=== PATIENT | female | born 1940 | race Caucasian/White ===

== ENCOUNTER → 2018-05-29 14:31 | Outpatient (CLI) | payer MEDICARE, OTHER, SELFPAY ==
--- NOTE | 2018-05-29 14:34 | BI_ITS ---
MAMMOGRAPHY - BILATERAL SCREENING REASON FOR EXAM: Female, 77 years old. Routine annual screening examination. PERTINENT HISTORY: Sister with breast cancer. Remote left excisional breast biopsy for benign neoplasm. TECHNIQUE: Digital bilateral breast saul (3D mammographic acquisition) in the CC and MLO projections. 2-D mediolateral oblique (MLO) and craniocaudad (CC) views of both breasts were obtained. CAD: Full Field Digital Mammography with Computer Added Detection was performed. COMPARISON: Comparison is made with prior study dated May 20, 2014 and October 20, 2011. FINDINGS: Breast Composition: The breasts are heterogeneously dense, which may obscure small masses. There are no dominant masses or suspicious calcifications. No other significant abnormalities are identified. There has been no significant change since the prior study. BI/SCREENING MAMM (CAD), BILAT IMPRESSION: Stable bilateral screening mammogram. Yearly follow-up mammogram recommended. (A) ASSESSMENT CATEGORY: BIRADS Category 1: Negative. A letter regarding these results will be sent to the patient by the facility within 30 days. Approximately 10% of breast cancers are not detected by mammography. A normal mammogram should not delay biopsy of a clinically suspicious abnormality. [id number] Electronically Signed: Nash Garcia MD at 8:42 EDT Tel [phone], Service support ,
== END ==
PROVIDERS: Family Provider Family Medicine; PCP Family Medicine; Visit Provider Family Medicine
DX: Z00.00 Encounter for general adult medical examination without abnormal findings (principal); Z12.31 Encounter for screening mammogram for malignant neoplasm of breast
CPT/HCPCS: 77063; 77067

== ENCOUNTER → 2019-02-01 17:52 | Outpatient (CLI) | payer MEDICARE, OTHER, SELFPAY | PROVIDERS: Family Provider Family Medicine; PCP Family Medicine; Referring Provider Family Medicine; Visit Provider Family Medicine | DX: R30.0 Dysuria (principal) | CPT/HCPCS: 87086; 87088; 87186 ==

== ENCOUNTER → 2019-04-12 | Outpatient (CLI) | payer MEDICARE, OTHER, SELFPAY ==
[2019-04-03 14:22] VITALS: BMI 29.9
[2019-04-12 12:17] LABS: AST(SGOT) 19 U/L (15-37); Alanine Aminotransfer ALT/SGPT 25 U/L (13-56); Albumin, Serum 3.7 g/dL (3.2-5.0); Alkaline Phosphatase 87 U/L (45-117); Bilirubin, Direct 0.09 mg/dL (0.00-0.30); Globulin 3.1 g/dL (2.2-4.2); Protein, Total 6.8 g/dL (6.4-8.2)
[2019-04-12 12:54] LABS: Anion Gap 6 (5-15); BUN 18 mg/dL (7-18); BUN/Creat Ratio 14.1 RATIO (10-20); Calcium,Total 8.6 mg/dL (8.5-10.1); Chloride 109 mmol/L (98-107); Cholesterol 149 mg/dL (200); Creatinine, Serum 1.28 mg/dL (0.55-1.02); EST Glomerular Filtration Rate 43 mL/min (>60); Est Glom Filt Rate - Afr Amer 52 mL/min (>60); Glucose 98 mg/dL (74-106); High Density Lipoprotein 50 mg/dL; Potassium 4.1 mmol/L (3.5-5.1); Sodium Level 142 mmol/L (136-145); Triglycerides 114 mg/dL; Very Low Density Lipoprotein 23 mg/dL (5-40)
== END | disposition home or self-care (01) ==
PROVIDERS: Family Provider Family Medicine; PCP Family Medicine; Referring Provider Internal Medicine Cardiovascular Disease; Visit Provider Internal Medicine Cardiovascular Disease
DX: I10 Essential (primary) hypertension (principal); E78.00 Pure hypercholesterolemia, unspecified
CPT/HCPCS: 36415; 80048; 80061; 80076

== ENCOUNTER → 2019-07-23 | Outpatient (CLI) | payer MEDICARE, OTHER, SELFPAY ==
[2019-04-03 14:22] VITALS: BMI 29.9
== END | disposition home or self-care (01) ==
PROVIDERS: Family Provider Family Medicine; PCP Family Medicine; Referring Provider Nurse Practitioner Adult Health; Visit Provider Nurse Practitioner Adult Health
DX: R30.0 Dysuria (principal)
CPT/HCPCS: 87077; 87086; 87088; 87186

== ENCOUNTER → 2019-12-05 11:00 | Outpatient (CLI) | payer MEDICARE, OTHER, SELFPAY ==
[2019-10-31 10:29] VITALS: BMI 29.8
[2019-12-05 12:03] LABS: AST(SGOT) 18 U/L (15-37); Alanine Aminotransfer ALT/SGPT 29 U/L (13-56); Albumin, Serum 3.5 g/dL (3.2-5.0); Alkaline Phosphatase 84 U/L (45-117); Bilirubin, Direct 0.13 mg/dL (0.00-0.30); Cholesterol 191 mg/dL (200); Globulin 3.4 g/dL (2.2-4.2); High Density Lipoprotein 45 mg/dL; Protein, Total 6.9 g/dL (6.4-8.2); Triglycerides 131 mg/dL; Very Low Density Lipoprotein 26 mg/dL (5-40)
== END ==
PROVIDERS: PCP Family Medicine; Referring Provider Internal Medicine Cardiovascular Disease; Visit Provider Internal Medicine Cardiovascular Disease
DX: E78.00 Pure hypercholesterolemia, unspecified (principal)
CPT/HCPCS: 36415; 80061; 80076

== ENCOUNTER → 2019-12-31 15:11 | Outpatient (CLI) | payer MEDICARE, OTHER, SELFPAY ==
[2019-10-31 10:29] VITALS: BMI 29.8
[2019-12-31 18:10] LABS: Absolute Lymphocyte Count 2.44 X10^3/uL (0.83-4.51); Absolute Neutrophil Count 4.3 X10^3/uL (2.0-7.7); Basophil# 0.07 X10^3/uL; Basophil% 0.9 % (0-1); Eosinophil# 0.14 X10^3/uL; Eosinophils% 1.8 % (0-5); Hematocrit 39.3 % (37-47); Hemoglobin 12.8 g/dL (12.0-15.0); Lymphocyte # 2.44 X10^3/ul (4.0); Lymphocyte % 31.5 % (19-41); Mean Corp Hgb Conc 32.6 g/dL (32-36); Mean Corpuscular Hgb 29.6 pg (27.0-32.0); Mean Corpuscular Volume 90.8 fL (81-99); Monocyte% 10.3 % (0-10); NRBC Flagged by Analyzer 0 % (0-5); Neutrophil # 4.26 X10^3/uL (2.7-7.7); Platelet Count 179 K/mm3 (150-450); RBC Distribution Width CV 12.6 % (11.6-14.6); RBC Distribution Width SD 41.8 fl (35.1-43.9); Red Blood Count 4.33 M/mm3 (4.2-5.4); White Blood Count 7.8 K/mm3 (4.4-11.0)
[2019-12-31 18:54] LABS: ALB/GLOB Ratio 1.2 RATIO (0.9-2.4); AST(SGOT) 24 U/L (15-37); Alanine Aminotransfer ALT/SGPT 36 U/L (13-56); Albumin, Serum 3.7 g/dL (3.2-5.0); Alkaline Phosphatase 75 U/L (45-117); Anion Gap 5 (5-15); BUN 20 mg/dL (7-18); BUN/Creat Ratio 16.7 RATIO (10-20); Chloride 108 mmol/L (98-107); EST Glomerular Filtration Rate 46 mL/min (>60); Est Glom Filt Rate - Afr Amer 56 mL/min (>60); Globulin 3.1 g/dL (2.2-4.2); Glucose 93 mg/dL (74-106); Potassium 4.1 mmol/L (3.5-5.1); Protein, Total 6.8 g/dL (6.4-8.2); Sodium Level 140 mmol/L (136-145); Thyroid Stim Hormone (TSH) 3.19 uIU/mL (0.358-3.74)
== END ==
PROVIDERS: PCP Family Medicine; Visit Provider Family Medicine
DX: F32.9 Major depressive disorder, single episode, unspecified (principal)
CPT/HCPCS: 36415; 80053; 84443; 85025

== ENCOUNTER → 2020-09-29 | Outpatient (CLI) | payer MEDICARE, OTHER, SELFPAY ==
[2020-05-01 14:39] VITALS: BMI 29.4
== END | disposition home or self-care (01) ==
LOC: LABSPEC 15:43
PROVIDERS: PCP Family Medicine; Referring Provider Family Medicine; Visit Provider Family Medicine
DX: U07.1 COVID-19 (principal); J06.9 Acute upper respiratory infection, unspecified
CPT/HCPCS: 87635; U0003

== ENCOUNTER 2020-10-04 18:06 | Emergency (ER) | payer MEDICARE, OTHER, SELFPAY ==
[2020-05-01 14:39] VITALS: BMI 29.4
[2020-10-04] VITALS (7 sets, daily range): BP systolic 144–183; BP diastolic 80–104; PULSE 70–87; RESP 14–19; TEMP 36.7–36.8; O2SAT 96–98; BMI 28.0
--- NOTE | 2020-10-04 08:30 | RAD_ITS ---
STUDY: X-RAY CHEST REASON FOR EXAM: Female, 79 years old. FEVER, NAUSEA, ACHING, CHILLS FOR SEVERAL DAYS. NO APPETITE, POSITIVE COVID TEST 09/29/20 -- HX OF HTN TECHNIQUE: Single frontal view of the chest. COMPARISON: 04/22/2012 FINDINGS: The lungs are clear and expanded. There is no demonstrated pleural abnormality. Normal size heart. Normal mediastinum and thomas. Normal visualized pulmonary arteries. Normal visualized aortic arch and descending thoracic aorta. Normal visualized thoracic spine. Normal visualized ribs, clavicles, and shoulders. There is no demonstrated abnormality of the visualized soft tissue structures of the upper abdomen. RAD/Chest 1 View (Portable) IMPRESSION: Normal x-ray examination of the chest. Electronically Signed: Kvng Castro MD at 18:42 EST Tel , Service support ,
--- NOTE | 2020-10-04 18:21 | ED.DCSUM_ITS ---
History of Present Illness Chief Complaint: Nausea/Vomiting Informant: Patient Onset: Days Context: Gradual Onset Narrative: Patient presents secondary to feeling ill. She complains of subjective fever, chills, nausea, body aches. She states she became ill on the seventh and tested positive for Covid on the 10th. She initially had cough and respiratory symptoms but those seem to be improved. - Past Medical History (1) Essential hypertension Status: Chronic (2) Pure hypercholesterolemia Status: Chronic Past Medical History - Allergies and Home Meds Allergies/Adverse Reactions: Allergies amlodipine Allergy (Severe, Verified 05/01/20 14:37) Mouth Sores diltiazem [From Cardizem] Allergy (Intermediate, Verified 05/01/20 14:37) Mouth Ulcers atorvastatin Adverse Reaction (Intermediate, Verified 05/01/20 14:37) Nausea losartan [From Cozaar] Adverse Reaction (Intermediate, Verified 05/01/20 14:37) cough nitrofurantoin [From Macrobid] Adverse Reaction (Intermediate, Verified 05/01/20 14:37) Nausea/Vomiting paroxetine [From Paxil] Adverse Reaction (Intermediate, Verified 05/01/20 14:37) Vomiting chlorthalidone Adverse Reaction (Mild, Verified 05/01/20 14:37) Nausea erythromycin base Adverse Reaction (Unknown, Verified 05/01/20 14:37) Unknown erythromycin Adverse Reaction (Severe, Uncoded 10/31/19 10:29) Unknown Primary Care Physician: Liz Riddle MD [Primary Care Provider] - Surgical History: noncontributory Lives: Spouse/ Significant Other Smoking Status: Never smoker Review of Systems General: Reports: Chills, Fever, Subjective Eyes: Denies: Visual changes - bilaterally ENT: Denies: Bilateral ear pain Cardiovascular: Denies: Chest pain Respiratory: Reports: Cough - Improving. Denies: Dyspnea Gastrointestinal: Reports: Nausea. Denies: Abdominal pain Genitourinary: Denies: Dysuria Musculoskeletal: Reports: Myalgias. Denies: Extremity Pain Skin: Denies: Rash Hematologic: Denies: Easy bruising, Easy bleeding Allergy: Denies: Uticaria Physical Exam Vital Signs/Narrative: Vital Signs Temp Pulse Resp BP Pulse Ox 10/04/20 18:09 98.3 F 87 16 145/89 H 98 10/04/20 18:07 98.3 F 84 16 145/89 H 98 Inital Vital Signs reviewed: Yes General: Well nourished, Well developed Head: Normocephalic ENT: Moist mucous membranes Neck: Supple Cardiovascular: Regular rate, Regular rhythm Respiratory: No distress, CTA bilaterally Abdomen: Soft, Nontender, Hypoactive bowel sounds Skin: Normal color Neurological: Alert, Oriented x3 Psychological: Normal affect Diagnostic/Tx/Re-eval Impressions Chest X-Ray 10/04/20 08:30 IMPRESSION: Normal x-ray examination of the chest. Electronically Signed: Kvng Castro MD at 18:42 EST Tel , Service support , 10/04/20 08:30 Chest 1 View (Portable) [RAD] Stat Laboratory Results 10/04/20 10/04/20 10/04/20 18:20 18:20 18:20 WBC 4.7 RBC 5.00 Hgb 14.9 Hct 43.8 MCV 87.6 MCH 29.8 MCHC 34.0 RDW Std Deviation 39.6 RDW Coeff of [place] 12.3 Plt Count 179 MPV 11.7 Immature Gran % (Auto) 0.400 Neut % (Auto) 46.4 L Lymph % (Auto) 37.0 Hendricks % (Auto) 14.7 H Eos % (Auto) 0.9 Baso % (Auto) 0.6 Absolute Neuts (auto) 2.2 Absolute Lymphs (auto) 1.73 Nucleated RBC % 0 Sodium 140 Potassium 3.7 Chloride 106 Carbon Dioxide 26.0 Anion Gap 8 BUN 19 H Creatinine 1.11 H Estim Creat Clear Calc 38.47 Est GFR (MDRD) Af Amer 61 Est GFR (MDRD) Non-Af 50 L BUN/Creatinine Ratio 17.1 Glucose 111 H Lactic Acid 1.1 Calcium 8.7 Urine Color Urine Clarity Urine pH Ur Specific [place] Urine Protein Urine Glucose (UA) Urine Ketones Urine Occult Blood Urine Nitrite Urine Bilirubin Urine Urobilinogen Ur Leukocyte Esterase Urine RBC Urine WBC Ur Squamous Epith Cells Ur Transition Epith Cell Urine Bacteria Urine Mucus 10/04/20 20:05 WBC RBC Hgb Hct MCV MCH MCHC RDW Std Deviation RDW Coeff of [place] Plt Count MPV Immature Gran % (Auto) Neut % (Auto) Lymph % (Auto) Hendricks % (Auto) Eos % (Auto) Baso % (Auto) Absolute Neuts (auto) Absolute Lymphs (auto) Nucleated RBC % Sodium Potassium Chloride Carbon Dioxide Anion Gap BUN Creatinine Estim Creat Clear Calc Est GFR (MDRD) Af Amer Est GFR (MDRD) Non-Af BUN/Creatinine Ratio Glucose Lactic Acid Calcium Urine Color Yellow Urine Clarity Cloudy Urine pH 6.0 Ur Specific [place] 1.010 Urine Protein Negative Urine Glucose (UA) Normal Urine Ketones 5 H Urine Occult Blood Negative Urine Nitrite Negative Urine Bilirubin Negative Urine Urobilinogen Normal Ur Leukocyte Esterase Negative Urine RBC 0 SEEN Urine WBC 0-5 SEEN Ur Squamous Epith Cells 5-10 SEEN Ur Transition Epith Cell 0-5 SEEN Urine Bacteria 0 SEEN Urine Mucus 0 SEEN - Medical Decision Making Patient was given a 500 cc IV fluid bolus along with 4 mg of IV Zofran. On repeat evaluation patient stated that she did not feel she could urinate and was still nauseated. She was given p.o. Reglan and was able to provide a urine sample. Patient states she was able to get the water down okay but she does still feel nauseated. Test results are discussed with her. At this time she does feel comfortable with discharge to home. She will be given a prescription for Zofran that she can take regularly for the next couple days to see if this controls her nausea. ED Disposition - Plan for ED Patient: Disposition: Home or Assisted Living Diagnosis: COVID-19, Nausea Instructions: ED Nausea Vomiting Adult, ED Viral Syndrome Prescriptions: Ondansetron [Zofran Odt] 4 mg PO Q8H PRN PRN #10 tab PRN Reason: Nausea Transmission Status: Pending to [facility] Referrals: Liz Riddle MD [Primary Care Provider] - 1 Week if not improving
[2020-10-04] MEDS: Ondansetron 4 MG/2 ML Vial IV (18:26)
[2020-10-04 18:38] LABS: Absolute Lymphocyte Count 1.73 X10^3/uL (0.83-4.51); Absolute Neutrophil Count 2.2 X10^3/uL (2.0-7.7); Basophil# 0.03 X10^3/uL; Basophil% 0.6 % (0-1); Eosinophil# 0.04 X10^3/uL; Eosinophils% 0.9 % (0-5); Hematocrit 43.8 % (37-47); Hemoglobin 14.9 g/dL (12.0-15.0); Lymphocyte # 1.73 X10^3/ul (4.0); Mean Corpuscular Hgb 29.8 pg (27.0-32.0); Mean Corpuscular Volume 87.6 fL (81-99); Mean Platelet Vol. 11.7 fl (6.2-12.0); Monocyte# 0.69 X10^3/uL; Monocyte% 14.7 % (0-10); NRBC Flagged by Analyzer 0 % (0-5); Neutrophil # 2.17 X10^3/uL (2.7-7.7); Neutrophil % 46.4 % (47-70); Platelet Count 179 K/mm3 (150-450); RBC Distribution Width CV 12.3 % (11.6-14.6); RBC Distribution Width SD 39.6 fl (35.1-43.9); White Blood Count 4.7 K/mm3 (4.4-11.0)
[2020-10-04 18:52] LABS: Anion Gap 8 (5-15); BUN 19 mg/dL (7-18); BUN/Creat Ratio 17.1 RATIO (10-20); Calcium,Total 8.7 mg/dL (8.5-10.1); Chloride 106 mmol/L (98-107); Creatinine, Serum 1.11 mg/dL (0.55-1.02); EST Glomerular Filtration Rate 50 mL/min (>60); Est Glom Filt Rate - Afr Amer 61 mL/min (>60); Estimated Creatinine Clearance 38.47 ml/min; Glucose 111 mg/dL (74-106); Potassium 3.7 mmol/L (3.5-5.1); Sodium Level 140 mmol/L (136-145)
[2020-10-04 19:02] LABS: Lactic Acid 1.1 mmol/L (0.4-1.9)
[2020-10-04] MEDS: Metoclopramide 10 MG Tablet PO (20:04)
[2020-10-04 20:11] LABS: Bacteria 0 SEEN /hpf (None Seen); Mucous, Urine 0 SEEN /hpf (<or=2+); Red Blood Cells-Urine 0 SEEN /hpf (0-5)
[2020-10-04 20:13] LABS: Color, Urine Yellow (Yellow); Glucose, Dipstick Normal (Normal); Ketone-Dipstick 5 mg/dl (Negative); Leukocyte Esterase-Dipstick Negative /ul (Negative); Nitrite-Dipstick Negative (Negative); Occult Blood-Urine Negative /ul (Negative); Protein-Dipstick Negative (Negative); Urine Bilirubin Dipstick Negative (Negative); Urine Clarity Cloudy (Clear); Urine Urobilinogen Normal (Normal)
[2020-10-04 20:34] LABS: Squamous Epithelial Cells - UA 5-10 SEEN /hpf (5-10); Transitional Epithelial - Ur 0-5 SEEN /hpf (0-5); White Blood Cells 0-5 SEEN /hpf (0-5)
== END 2020-10-04 21:09 | disposition home or self-care (01) ==
PROVIDERS: Emergency Provider Emergency Medicine; PCP Family Medicine
DX: U07.1 COVID-19 (principal); R11.0 Nausea; I10 Essential (primary) hypertension; E78.00 Pure hypercholesterolemia, unspecified; Z79.82 Long term (current) use of aspirin; Z79.899 Other long term (current) drug therapy
CPT/HCPCS: 36415; 71045; 80048; 81001; 83605; 85025; 87040; 96361; 96374; 99284; J7040; A4216; J2405

== ENCOUNTER 2020-10-05 11:27 | Emergency (ER) | payer MEDICARE, OTHER, SELFPAY ==
[2020-10-04 18:07] VITALS: BMI 28.0
[2020-10-05 11:28] VITALS: BP 66/49; PULSE 63; RESP 17; TEMP 36.4; O2SAT 97; BMI 28.3
[2020-10-05 11:47] VITALS: BP 101/51
--- NOTE | 2020-10-05 11:55 | ED.DCSUM_ITS ---
History of Present Illness Chief Complaint: Nausea/Vomiting Informant: Patient Onset: Days - 1- Quality: nausea Location: abd Current Severity: Moderate Maximum Severity: Moderate Worsened by: nothing Relieved by: IV zofran overnight during ED visit Associated Symptoms: malaise/fatigue, myalgias Narrative: Patient has had symptoms of COVID-19 for about 10 days, she tested positive as an outpatient less than 1 week ago. She did have fevers and some headaches, that is resolved and now she just feels fatigued, has a nonproductive cough, and myalgias. She is able to get around at home. Her has it as well, he was hypoxic and admitted to the hospital. She has been feeling nauseated and with a significant decreased appetite and oral intake for the last day or 2 and was seen here overnight for those symptoms. She was given IV fluids and Zofran. Labs did not show significant d ehydration, and actually showed better renal function than she has had in the past. Her mouth feels dry. She has not yet filled the Zofran she was prescribed since she was just here. She states that her daughter called the office, and based on discussion with staff there, they told her she did not get enough IV fluids, take her back and get her more. Patient states she has no new symptoms. - Past Medical History (1) Essential hypertension Status: Chronic (2) Pure hypercholesterolemia Status: Chronic Past Medical History - Allergies and Home Meds Allergies/Adverse Reactions: Allergies amlodipine Allergy (Severe, Verified 10/05/20 11:28) Mouth Sores diltiazem [From Cardizem] Allergy (Intermediate, Verified 10/05/20 11:28) Mouth Ulcers atorvastatin Adverse Reaction (Intermediate, Verified 10/05/20 11:28) Nausea losartan [From Cozaar] Adverse Reaction (Intermediate, Verified 10/05/20 11:28) cough nitrofurantoin [From Macrobid] Adverse Reaction (Intermediate, Verified 10/05/20 11:28) Nausea/Vomiting paroxetine [From Paxil] Adverse Reaction (Intermediate, Verified 10/05/20 11:28) Vomiting chlorthalidone Adverse Reaction (Mild, Verified 10/05/20 11:28) Nausea erythromycin base Adverse Reaction (Unknown, Verified 10/05/20 11:28) Unknown erythromycin Adverse Reaction (Severe, Uncoded 11/16/20 11:28) Unknown Primary Care Physician: Liz Riddle MD [Primary Care Provider] - Smoking Status: Never smoker Review of Systems General: Reports: Malaise. Denies: Chills, Fever, Sweats Eyes: Denies: Visual changes - bilaterally, Diplopia ENT: Reports: - - Dry mouth. Denies: Rhinorrhea, Sore throat Cardiovascular: Denies: Chest pain, Palpitations Respiratory: Reports: Cough. Denies: Dyspnea, Sputum, Dyspnea on exertion Gastrointestinal: Denies: Abdominal pain, Nausea, Vomiting, Diarrhea, Melena, Hematochezia Genitourinary: Denies: Dysuria, Hematuria, Frequency Musculoskeletal: Reports: Myalgias. Denies: Back pain, Swelling, Extremity Pain Skin: Denies: Rash, Wounds Neurological: Denies: Headache, Weakness, Numbness Physical Exam Vital Signs/Narrative: Vital Signs Temp Pulse Resp BP Pulse Ox 10/05/20 11:47 101/51 L 10/05/20 11:28 97.6 F L 63 17 66/49 L 97 Inital Vital Signs reviewed: Yes General: Well nourished, Well developed, No Acute Distress Head: Normocephalic, Atraumatic Eyes: Perrl, EOMI Neck: Supple, Nontender, No lymphadenopathy Cardiovascular: Regular rate, Regular rhythm, No murmurs. Negative for: Tachycardia Respiratory: No distress, CTA bilaterally, Chest nontender Abdomen: Soft, Nontender, Nondistended, Normal bowel sounds Back: Nontender, Normal Inspection. Negative for: CVA tenderness Extremities: Nontender, No edema Skin: Normal color, No rash, No Trauma Neurological: Alert, Oriented x3, Cranial nerves II-XII grossly intact, Normal Strength, Normal Sensation, Normal Gait Psychological: Normal affect, Normal Mood Diagnostic/Tx/Re-eval - Medical Decision Making Patient was given a liter of IV fluids and Zofran for comfort, she was okay with that. No vomiting. I discussed with Dr. Riddle, she was aware that this patient was coming, but was unaware that she had just been seen in the ER around 12 hours prior, she was under the impression that she was here days ago and still was not drinking anything. On reevaluation her blood pressure is good, the initial one that was low I think was inaccurate, and was taken over top of her sweatshirt and multiple other layers. Patient is feeling a little better after fluids, advised to fill the Zofran that was already prescribed, and other measures of supportive care advised at home. We discussed reasons to return she is comfortable with that plan. ED Disposition - Plan for ED Patient: Disposition: Home or Assisted Living Diagnosis: Nausea, CRI (chronic renal insufficiency), COVID-19 Instructions: ED Nausea Vomiting Adult Referrals: Liz Riddle MD [Primary Care Provider] - 3-5 Days if not improving Additional Instructions: Fill and take your Zofran as needed, as prescribed.
[2020-10-05] MEDS: 0.9% Normal Saline 1,000 ML 999 ML IV (12:09)
[2020-10-05] MEDS: Ondansetron 4 MG/2 ML Vial IV (12:09)
[2020-10-05 13:25] VITALS: BP 145/72; PULSE 61; RESP 18; O2SAT 98
== END 2020-10-05 13:29 | disposition home or self-care (01) ==
PROVIDERS: Emergency Provider Emergency Medicine; PCP Family Medicine
DX: U07.1 COVID-19 (principal); R11.2 Nausea with vomiting, unspecified; I12.9 Hypertensive chronic kidney disease with stage 1 through stage 4 chronic kidney disease, or unspecified chronic kidney disease; N18.9 Chronic kidney disease, unspecified; E78.00 Pure hypercholesterolemia, unspecified; Z79.82 Long term (current) use of aspirin; Z79.899 Other long term (current) drug therapy
CPT/HCPCS: 96361; 96374; 99283; J7030; A4216; J2405

== ENCOUNTER → 2021-02-18 10:24 | Outpatient (CLI) | payer MEDICARE, OTHER, SELFPAY ==
[2020-12-28 13:26] VITALS: BMI 29.7
[2021-02-18 12:39] LABS: AST(SGOT) 17 U/L (15-37); Alanine Aminotransfer ALT/SGPT 23 U/L (13-56); Albumin, Serum 3.8 g/dL (3.2-5.0); Alkaline Phosphatase 78 U/L (45-117); Bilirubin, Direct 0.14 mg/dL (0.00-0.30); Cholesterol 214 mg/dL (200); Globulin 2.8 g/dL (2.2-4.2); High Density Lipoprotein 52 mg/dL; Protein, Total 6.6 g/dL (6.4-8.2); Triglycerides 142 mg/dL; Very Low Density Lipoprotein 28 mg/dL (5-40)
== END ==
PROVIDERS: PCP Family Medicine; Referring Provider Internal Medicine Cardiovascular Disease; Visit Provider Internal Medicine Cardiovascular Disease
DX: E78.00 Pure hypercholesterolemia, unspecified (principal); B35.1 Tinea unguium; I10 Essential (primary) hypertension
CPT/HCPCS: 80061; 80076

== ENCOUNTER → 2021-08-04 10:37 | Outpatient (CLI) | payer MEDICARE, OTHER, SELFPAY ==
[2021-08-04 12:31] LABS: Anion Gap 6 (5-15); BUN 17 mg/dL (7-18); BUN/Creat Ratio 13.8 RATIO (10-20); Calcium,Total 8.9 mg/dL (8.5-10.1); Chloride 109 mmol/L (98-107); Creatinine, Serum 1.23 mg/dL (0.55-1.02); EST Glomerular Filtration Rate 45 mL/min (>60); Est Glom Filt Rate - Afr Amer 54 mL/min (>60); Glucose 108 mg/dL (74-106); Potassium 3.8 mmol/L (3.5-5.1); Sodium Level 140 mmol/L (136-145)
== END ==
PROVIDERS: PCP Family Medicine; Referring Provider Family Medicine; Visit Provider Family Medicine
DX: I10 Essential (primary) hypertension (principal)
CPT/HCPCS: 36415; 80048

== ENCOUNTER → 2021-08-05 | Outpatient (CLI) | payer MEDICARE, OTHER, SELFPAY ==
[2021-08-05 15:57] LABS: Microalbumin,Random Urine 16.7 mg/L (NO RANGE EST.)
== END | disposition home or self-care (01) ==
LOC: LABSPEC 11:46
PROVIDERS: PCP Family Medicine; Referring Provider Family Medicine; Visit Provider Family Medicine
DX: I10 Essential (primary) hypertension (principal)
CPT/HCPCS: 82043; 82570

== ENCOUNTER → 2021-08-19 10:25 | Outpatient (CLI) | payer MEDICARE, OTHER, SELFPAY ==
--- NOTE | 2021-08-19 10:28 | BD_ITS ---
STUDY: DUAL ENERGY X-RAY ABSORPTIOMETRY / DXA REASON FOR EXAM: Female, 80 years old. V76.12ScreeningBONE DENSITY REASON FOR EXAM TECHNIQUE: Bone Mineral Density (BMD) measurements of lumbar spine and bilateral hips were obtained. COMPARISON: Comparison is made with prior study dated 06/20/2012. FINDINGS: Lumbar Spine (L1-L4): g/cm2 (0.780) / T-score (-2.4) / Z-score (0.3) Findings are suggestive of osteopenia with a high fracture risk. Left Femur Total: g/cm2 (0.747) / T-score (-1.6) / Z-score (0.5) Left Femoral Neck: g/cm2 (0.662) / T-score (-1.7) / Z-score (0.6) Right Femur Total: g/cm2 (0.783) / T-score (-1.3) / Z-score (0.8) Right Femoral Neck: g/cm2 (0.746) / T-score (-0.9) / Z-score (1.4) The T-Scores on the most recent prior examination were: Lumbar Spine (L1-L4): There has been worsening of bone density since the previous examination. Left Femur Total: which represents a worsening of 0.2%. Right Femur Total: which represents an improvement of 2.8%. BD/Dexa Bone Density Study IMPRESSION: The patient is considered osteopenic as outlined below according to World Aly Organization (WHO) criteria with a high fracture risk. There has been worsening of bone density since the previous examination. Reference Information: The T-score is the number of standard deviations above or below the standard which is normal for young adults at their peak bone mineral density. The World Health Organization (WHO) interprets the T-scores as follows: Above -1 Normal bone density Between -1 and -2.5 Osteopenia Equal to / or below -2.5 Osteoporosis As a practical clinical guideline, osteopenia may be graded as follows: Mild -1 through -1.5 Moderate -1.6 through -2.0 Severe -2.1 through -2.4 The Z-score is the number of standard deviations above or below age-matched controls. A Z-score of less than -1.5 would be considered abnormal. References: 1. NIH Osteoporosis and Related Bone Diseases www osteo.org 2. International Society for Clinical Densitometry www iscd.org 3. National Osteoporosis Foundation www nof.org Electronically Signed: Nash Garcia MD at 13:53 EDT , Service support ,
--- NOTE | 2021-08-19 10:28 | BI_ITS ---
MAMMOGRAPHY - BILATERAL SCREENING REASON FOR EXAM: Female, 80 years old. Routine annual screening examination. PERTINENT HISTORY: Sister with breast cancer. TECHNIQUE: Digital bilateral breast miko (3D mammographic acquisition) in the CC and MLO projections. 2-D mediolateral oblique (MLO) and craniocaudad (CC) views of both breasts were obtained. CAD: Full Field Digital Mammography with Computer Added Detection was performed. COMPARISON: Comparison is made with prior study dated 05/29/2018 and 05/20/2014. FINDINGS: Breast Composition: The breasts are heterogeneously dense, which may obscure small masses. There are no dominant masses or suspicious calcifications. No other significant abnormalities are identified. There has been no significant change since the prior study. BI/SCRN MAMM (CAD)W/MIKO BILAT IMPRESSION: Stable bilateral screening mammogram. Yearly follow-up mammogram recommended. (A) ASSESSMENT CATEGORY: BIRADS Category 1: Negative. A letter regarding these results will be sent to the patient by the facility within 30 days. Approximately 10% of breast cancers are not detected by mammography. A normal mammogram should not delay biopsy of a clinically suspicious abnormality. [id number] Electronically Signed: Nash Garcia MD at 12:24 EDT , Service support ,
== END ==
PROVIDERS: PCP Family Medicine; Referring Provider Family Medicine; Visit Provider Family Medicine
DX: Z12.31 Encounter for screening mammogram for malignant neoplasm of breast (principal); N95.9 Unspecified menopausal and perimenopausal disorder
CPT/HCPCS: 77063; 77067; 77080

== ENCOUNTER 2022-06-26 17:30 | Emergency (ER) | payer MEDICARE, OTHER, SELFPAY ==
[2022-06-26 17:31] VITALS: BP 217/110; PULSE 89; RESP 16; TEMP 36.4; O2SAT 98; BMI 27.4
[2022-06-26 17:51] VITALS: PULSE 77; RESP 13; O2SAT 98
--- NOTE | 2022-06-26 17:52 | EX.ED.DYSGE1 ---
HPI History of Present Illness Chief Complaint: Hypertension Detail of Chief Complaint: High blood pressure Informant: patient Narrative Narrative: Patient presents the emergency department complaint of high blood pressure today. Patient states that she did not feel well 2 nights ago and she woke up with hot flashes and had a hard time sleeping all night. Patient just laid around yesterday and did not have much of an appetite. Family came over to visit her today and she described hot flashes and feeling flushed and nauseated and her daughter made her check her blood pressure and it was elevated to 204/110 so she was advised to come to the emergency department for evaluation. She does have history of hypertension but states she has been relatively well controlled on her medications and 4 months ago when she was in doctor's office her pressure was 130s systolic. Patient denies any chest pain. She denies shortness of breath. She denies headache. Patient denies recent illness. Patient states that she was caring for her dog last week and she was sneezing and coughing but she thought it was all related to allergies. Patient has had the COVID-vaccine. She denies urinary symptoms. Patient states that she took an extra blood pressure medicine dose today but that did not seem to ring her blood pressure down. Patient has been under more stress of late as her 6 months ago and she has had daughters who have had recent surgery. Patient does take Ativan for anxiety. Prior similar symptoms: No PFSH PFSH Medical History Altered mental status Essential hypertension Hyperlipidemia Pure hypercholesterolemia Syncope TIA (transient ischemic attack) Vasovagal syncopes Home Medications aspirin 81 mg tablet,delayed release (Adult Low Dose Aspirin) 81 mg PO QDAY 03/14/18 [History Last Taken Unknown] mometasone 50 mcg/actuation nasal spray 1 spray intranasal QDAY PRN Allergies 03/14/18 [History Last Taken Unknown] zolpidem 5 mg tablet 5 mg PO QHS PRN Sleep 03/14/18 [History Last Taken Unknown] lorazepam 0.5 mg tablet 0.5 mg PO DAILY PRN Anxiety 04/03/19 [History Last Taken Unknown] carvedilol 12.5 mg tablet 12.5 mg PO BID #180 tabs 08/12/21 [Rx Last Taken Unknown] clonidine HCl 0.1 mg tablet 0.1 mg PO Q12H #180 tabs 08/12/21 [Rx Last Taken Unknown] Allergy/AdvReac Type Severity Reaction Status Date / Time amlodipine Allergy Severe Mouth Sores Verified 06/26/22 17:31 diltiazem [From Cardizem] Allergy Intermediate Mouth Verified 06/26/22 17:31 Ulcers atorvastatin AdvReac Intermediate Nausea Verified 06/26/22 17:31 losartan [From Cozaar] AdvReac Intermediate cough Verified 06/26/22 17:31 nitrofurantoin AdvReac Intermediate Nausea/Vomi Verified 06/26/22 17:31 [From Macrobid] ting paroxetine [From Paxil] AdvReac Intermediate Vomiting Verified 06/26/22 17:31 chlorthalidone AdvReac Mild Nausea Verified 06/26/22 17:31 erythromycin base AdvReac Unknown Unknown Verified 06/26/22 17:31 Family History Mother No problems noted. Father No problems noted. Sister Diabetes Sister Hyperlipidemia Daughter Hypertension Son Hypertension Surgical History History of tonsillectomy Social History Smoking Status: Never smoker alcohol intake: never caffeine: Yes (1) Type: carbonated beverages and coffee what type of physical activity do you participate in: none ROS ROS ED ROS Narrative Not feeling well Review of Systems ROS Unobtainable: other Constitutional Constitutional ED: Reports lethargy; Denies chills, fever(s), sweats or weight loss Eyes Eyes: Denies blurry vision, change in vision or diplopia ENT ENT ED: Denies rhinorrhea or sore throat Cardiovascular Cardiovascular: Reports chest pain and racing heartbeat; Denies orthopnea Respiratory/Chest Respiratory/Chest: Reports dyspnea and dyspnea on exertion; Denies cough, orthopnea or sputum Gastrointestinal Gastrointestinal: Reports nausea; Denies abdominal pain, diarrhea or vomiting Genitourinary Genitourinary ED: Denies dysuria, hematuria or urinary frequency Musculoskeletal Musculoskeletal: Denies arthralgias, back pain, myalgias or neck pain Integumentary Denies abscess, Abrasions or rash Neurologic Neurologic: Denies headache(s) or weakness Psychiatric Psychiatric: Denies anxiety, depression or suicidal thoughts Endocrine Endocrinology: Denies polydipsia, polyphagia or polyuria Hematologic/Lymphatic Hematologic/Lymphatic: Denies easy bleeding, easy bruising or lymphadenopathy Allergic/Immunologic Allergic/Immunologic ED: Denies mouth swelling, tongue swelling or urticaria EXAM Physical Exam Const Vital Signs: 06/26/22 17:31 06/26/22 17:51 06/26/22 18:45 Temperature 97.6 F L Temperature Source Temporal Pulse Rate 89 77 Respiratory Rate 16 13 Respiratory Effort Normal Non-Labored Blood Pressure 217/110 H Blood Pressure Mean 145 Pulse Ox 98 98 Oxygen Delivery Method Room Air Room Air Positive well nourished and well developed General Appearance ED: well developed and NAD HEENT Reports TM's clear and moist mucous membranes normocephalic and atraumatic; Negative for trauma or tenderness Tympanic Membrane ED: Yes TM's clear Eyes PERRL and EOMs intact bilaterally General Eye ED: Negative for pale conjunctiva or scleral icterus Neck no lymphadenopathy, supple and no JVD General: Negative for tenderness Chest Wall inspection of chest normal and palpation of chest normal Chest: Negative for tenderness Resp normal respiratory effort and clear to auscultation bilaterally Effort and Inspection: Negative for respiratory distress or pain with movement Auscultation: Negative for rhonchi, wheezes or diminished lung sounds Cardio regular rate, regular rhythm, S1 normal heart sound, S2 normal heart sound and no murmurs Peripheral Pulses: pulses 2+ throughout GI normal to inspection, nondistended, normoactive bowel sounds, soft to palpation, non-tender, non-distended and no masses Back/Spine no CVA tenderness and no thoracic nor lumbar tenderness Extremity normal to inspection General Extremety ED: Negative for edema General Extremity: Negative for edema Neuro oriented x3, CN's II-XII intact bilaterally, no sensory deficits noted and gait normal Sensorium / Orientation: awake, alert, oriented to person, oriented to place and oriented to time Motor Exam: strength 5/5 throughout and strength abnormal Psych mental status grossly normal Skin no rashes or lesions noted and no wounds MDM MDM MDM Narrative Medical decision making narrative: IV line established. Patient was given a milligram of Ativan IV. Lab work-up was unremarkable. Urinalysis unremarkable. COVID-19 testing was negative. At this point her blood pressure has improved to 144 over 80s. I will feel any further change in her medications indicated. Suspect some component of stress and anxiety. Patient advised to keep a journal of her blood pressures over the next week and follow-up with her refractory tile helper. There is no evidence of endorgan damage. Lab Data Attestation: I reviewed the patient's lab results. Labs: Laboratory Results - last 24 hr 06/26/22 06/26/22 06/26/22 18:20 18:20 18:50 WBC 10.4 RBC 4.55 Hgb 13.4 Hct 40.7 MCV 89.5 MCH 29.5 MCHC 32.9 RDW Std Deviation 41.7 RDW Coeff of [place] 12.7 Plt Count 236 MPV 11.6 Immature Gran % (Auto) 0.300 Neut % (Auto) 58.3 Lymph % (Auto) 30.6 Runn[place] % (Auto) 9.1 Eos % (Auto) 1.2 Baso % (Auto) 0.5 Absolute Neuts (auto) 6.1 Absolute Lymphs (auto) 3.18 Nucleated RBC % 0 Sodium 140 Potassium 3.6 Chloride 108 H Carbon Dioxide 26.0 Anion Gap 6 BUN 19 H Creatinine 1.06 H Estim Creat Clear Calc 38.97 Est GFR (MDRD) Af Amer 64 Est GFR (MDRD) Non-Af 53 L BUN/Creatinine Ratio 17.9 Glucose 99 Calcium 9.4 Troponin I High Sens 6 Urine Color Straw Urine Clarity Clear Urine pH 7.0 Ur Specific [place] 1.010 Urine Protein Negative Urine Glucose (UA) Normal Urine Ketones Negative Urine Occult Blood Negative Urine Nitrite Negative Urine Bilirubin Negative Urine Urobilinogen Normal Ur Leukocyte Esterase 100 H Urine RBC 0 SEEN Urine WBC 5-10 SEEN Ur Squamous Epith Cells 0-5 SEEN Urine Bacteria RARE Urine Mucus 0 SEEN EKG Initial EKG: Attestation: I personally reviewed and interpreted this EKG as follows: Comments: Sinus rhythm with a rate of 65 bpm with LVH and early repolarization abnormality noted. Last EKG available for comparison is from 2012 and the seem slightly changed and that there are some nonspecific ST changes now that were not there in 2012. Prior EKG tracings: available for review Prior: Changed Discharge Plan Triage Chief Complaint: Hypertension ED Provider: Rm Chavez Dx/Rx/DC Orders Clinical Impression: Hypertension Instructions: ED Hypertension, Established Prescriptions: No Action zolpidem 5 mg tablet 5 mg PO QHS PRN (Reason: Sleep) aspirin [Adult Low Dose Aspirin] 81 mg tablet,delayed release (DR/EC) 81 mg PO QDAY mometasone 50 mcg/actuation spray,non-aerosol 1 spray INTRANASAL QDAY PRN (Reason: Allergies) lorazepam 0.5 mg tablet 0.5 mg PO DAILY PRN (Reason: Anxiety) clonidine HCl 0.1 mg tablet 0.1 mg PO Q12H Qty: 180 3RF carvedilol 12.5 mg tablet 12.5 mg PO BID Qty: 180 3RF Primary Care Provider: Liz Riddle Referrals: Liz Riddle MD [Primary Care Provider] - Shawn Burgos MD [Med Staff - Active Staff] - 5-7 Days Disposition Disposition: Home, Self Care
[2022-06-26] MEDS: 0.9% Normal Saline 1,000 ML 150 ML IV (18:19)
[2022-06-26] MEDS: LORazepam 2 MG/ML Syringe 1 MG IV (18:19)
[2022-06-26 18:42] LABS: Absolute Lymphocyte Count 3.18 X10^3/uL (0.83-4.51); Absolute Neutrophil Count 6.1 X10^3/uL (2.0-7.7); Basophil# 0.05 X10^3/uL; Basophil% 0.5 % (0-1); Eosinophil# 0.12 X10^3/uL; Eosinophils% 1.2 % (0-5); Hematocrit 40.7 % (37-47); Hemoglobin 13.4 g/dL (12.0-15.0); Lymphocyte # 3.18 X10^3/ul (0.83-4.51); Lymphocyte % 30.6 % (19-41); Mean Corp Hgb Conc 32.9 g/dL (32-36); Mean Corpuscular Hgb 29.5 pg (27.0-32.0); Mean Corpuscular Volume 89.5 fL (81-99); Mean Platelet Vol. 11.6 fl (6.2-12.0); Monocyte# 0.94 X10^3/uL; Monocyte% 9.1 % (0-10); NRBC Flagged by Analyzer 0 % (0-5); Neutrophil # 6.06 X10^3/uL (2.7-7.7); Neutrophil % 58.3 % (47-70); Platelet Count 236 K/mm3 (150-450); RBC Distribution Width CV 12.7 % (11.6-14.6); RBC Distribution Width SD 41.7 fl (35.1-43.9); Red Blood Count 4.55 M/mm3 (4.2-5.4); White Blood Count 10.4 K/mm3 (4.4-11.0)
[2022-06-26 19:04] LABS: Mucous, Urine 0 SEEN /hpf (<or=2+); Red Blood Cells-Urine 0 SEEN /hpf (0-5)
[2022-06-26 19:11] LABS: Anion Gap 6 (5-15); BUN 19 mg/dL (7-18); BUN/Creat Ratio 17.9 RATIO (10-20); Calcium,Total 9.4 mg/dL (8.5-10.1); Chloride 108 mmol/L (98-107); Creatinine, Serum 1.06 mg/dL (0.55-1.02); EST Glomerular Filtration Rate 53 mL/min (>60); Est Glom Filt Rate - Afr Amer 64 mL/min (>60); Estimated Creatinine Clearance 38.97 ml/min; Glucose 99 mg/dL (74-106); Potassium 3.6 mmol/L (3.5-5.1); Sodium Level 140 mmol/L (136-145); Troponin-I HS 6 pg/mL (3.0-54.0)
[2022-06-26 19:15] LABS: Color, Urine Straw (Yellow); Glucose, Dipstick Normal (Normal); Ketone-Dipstick Negative (Negative); Leukocyte Esterase-Dipstick 100 /ul (Negative); Nitrite-Dipstick Negative (Negative); Occult Blood-Urine Negative /ul (Negative); Protein-Dipstick Negative (Negative); Urine Bilirubin Dipstick Negative (Negative); Urine Clarity Clear (Clear); Urine Urobilinogen Normal (Normal)
[2022-06-26 19:27] LABS: Bacteria RARE /hpf (None Seen); Squamous Epithelial Cells - UA 0-5 SEEN /hpf (5-10); White Blood Cells 5-10 SEEN /hpf (0-5)
--- NOTE | 2022-06-26 19:35 | EKG12_ITS ---
Test Reason : htn Blood Pressure : / mmHG Vent. Rate : 065 BPM Atrial Rate : 065 BPM P-R Int : 160 ms QRS Dur : 104 ms QT Int : 430 ms P-R-T Axes : 021 -11 016 degrees QTc Int : 447 ms Normal sinus rhythm Left ventricular hypertrophy with repolarization abnormality ( R in aVL , Florenc[employer] product ) Abnormal ECG Confirmed by YULIET MURRY, MAREK ([id number]), technical editor MEÑO BENITES ([id number]) on 06/28/2022 9:16:38 AM Referred By: Confirmed By:MAREK HORVATH MD
[2022-06-26 20:00] VITALS: BP 136/90; PULSE 64; RESP 18; O2SAT 100
== END 2022-06-26 20:04 | disposition home or self-care (01) ==
PROVIDERS: Emergency Provider Emergency Medicine; PCP Family Medicine; Visit Provider Emergency Medicine
DX: I10 Essential (primary) hypertension (principal); F41.9 Anxiety disorder, unspecified; E78.00 Pure hypercholesterolemia, unspecified; Z86.73 Personal history of transient ischemic attack (TIA), and cerebral infarction without residual deficits; Z79.899 Other long term (current) drug therapy; Z79.82 Long term (current) use of aspirin
CPT/HCPCS: 80048; 81001; 84484; 85025; 87811; 93005; 96361; 96374; 99284

== ENCOUNTER → 2022-06-27 | Outpatient (CLI) | payer MEDICARE, OTHER, SELFPAY | END | disposition home or self-care (01) | LOC: LABSPEC 14:51 | PROVIDERS: PCP Family Medicine; Visit Provider Family Medicine | DX: R53.81 Other malaise (principal) | CPT/HCPCS: 87086; 87088; 87186 ==

== ENCOUNTER → 2022-06-30 | Outpatient (CLI) | payer MEDICARE, OTHER, SELFPAY ==
--- NOTE | 2022-06-30 09:53 | US_ITS ---
STUDY: ABDOMINAL ULTRASOUND - RIGHT UPPER QUADRANT REASON FOR VISIT: Female, 81 years old . Right upper quadrant pain and nausea. TECHNIQUE: Ultrasound evaluation of the right upper quadrant was performed with real-time and static keane-scale imaging. TECHNICAL QUALITY: Adequate. COMPARISON: None. FINDINGS: Liver: The liver measures 14.3 cm. There is increased echogenicity consistent with fatty infiltration. Focal fatty sparing in the region of the gallbladder fossa. The bile ducts are within normal limits. There is hepatic color flow. The direction of portal flow is hepatopetal. There is no demonstrated mass lesion. Gallbladder: Normal distended gallbladder. The gallbladder wall measures 1.0 mm. There is a negative sonographic Soler''s sign. There is no pericholecystic fluid. There are no gallstones. Common Bile Duct (C.B.D.): The common bile duct measures 4 mm. Pancreas: Normal size of the head, body and tail of the pancreas. There is normal echogenicity of the pancreas. There is no demonstrated pancreatic mass or cyst. Right Kidney: Normal size of the right kidney. The right kidney measures 10 cm x 5 cm x 4.9 cm. Normal renal cortex. The right cortex measures 0.9 cm. There is no demonstrated renal mass or cyst. There is no right hydronephrosis. US/Abdomen Limited IMPRESSION: Fatty infiltration of the liver. Electronically Signed: Nash Garcia MD at 12:03 EDT ,
== END | disposition home or self-care (01) ==
LOC: US 09:52
PROVIDERS: PCP Family Medicine; Referring Provider Family Medicine; Visit Provider Family Medicine
DX: R10.11 Right upper quadrant pain (principal)
CPT/HCPCS: 76705

== ENCOUNTER → 2022-07-01 | Outpatient (CLI) | payer MEDICARE, OTHER, SELFPAY ==
--- NOTE | 2022-07-01 17:01 | RAD_ITS ---
STUDY: X-RAY - ABDOMEN/PELVIS REASON FOR EXAM: Female, 81 years old. NAUSEA TECHNIQUE: AP supine and upright views of the abdomen and pelvis. COMPARISON: None. FINDINGS: Normal visualized lung bases. There is an unremarkable bowel gas pattern. There is no demonstrated free abdominal air. The visualized liver, spleen and kidneys are grossly normal in size and morphology. Normal soft tissue structures. Normal visualized osseous structures. RAD/Abd Inc Decub and/or Erect IMPRESSION: Normal x-ray examination of the abdomen and pelvis. Electronically Signed: Gerard Villalobos MD at 9:18 EDT ,
[2022-07-01 17:31] LABS: Absolute Lymphocyte Count 2.18 X10^3/uL (0.83-4.51); Absolute Neutrophil Count 6.8 X10^3/uL (2.0-7.7); Basophil# 0.04 X10^3/uL; Basophil% 0.4 % (0-1); Eosinophil# 0.05 X10^3/uL; Eosinophils% 0.5 % (0-5); Hematocrit 39.7 % (37-47); Hemoglobin 13.2 g/dL (12.0-15.0); Lymphocyte # 2.18 X10^3/ul (0.83-4.51); Lymphocyte % 21.9 % (19-41); Mean Corp Hgb Conc 33.2 g/dL (32-36); Mean Corpuscular Hgb 29.9 pg (27.0-32.0); Mean Corpuscular Volume 89.8 fL (81-99); Mean Platelet Vol. 12.2 fl (6.2-12.0); Monocyte# 0.87 X10^3/uL; Monocyte% 8.7 % (0-10); NRBC Flagged by Analyzer 0 % (0-5); Neutrophil # 6.78 X10^3/uL (2.7-7.7); Neutrophil % 68.2 % (47-70); Platelet Count 221 K/mm3 (150-450); RBC Distribution Width SD 42.6 fl (35.1-43.9); Red Blood Count 4.42 M/mm3 (4.2-5.4)
[2022-07-01 18:31] LABS: ALB/GLOB Ratio 1.1 RATIO (0.9-2.4); AST(SGOT) 20 U/L (15-37); Alanine Aminotransfer ALT/SGPT 22 U/L (13-56); Albumin, Serum 3.5 g/dL (3.2-5.0); Alkaline Phosphatase 71 U/L (45-117); Anion Gap 5 (5-15); BUN 17 mg/dL (7-18); CRP 3.19 mg/L (0.0-3.0); Calcium,Total 8.9 mg/dL (8.5-10.1); Chloride 108 mmol/L (98-107); Creatinine, Serum 1.31 mg/dL (0.55-1.02); EST Glomerular Filtration Rate 41 mL/min (>60); Est Glom Filt Rate - Afr Amer 50 mL/min (>60); Globulin 3.2 g/dL (2.2-4.2); Glucose 131 mg/dL (74-106); Potassium 3.6 mmol/L (3.5-5.1); Protein, Total 6.7 g/dL (6.4-8.2); Sodium Level 139 mmol/L (136-145)
== END | disposition home or self-care (01) ==
LOC: MTLAB 16:59
PROVIDERS: PCP Family Medicine; Referring Provider Family Medicine; Visit Provider Family Medicine
DX: R11.0 Nausea (principal); R23.2 Flushing
CPT/HCPCS: 36415; 74019; 80053; 85025; 86140

== ENCOUNTER → 2022-07-04 | Outpatient (CLI) | payer MEDICARE, OTHER, SELFPAY ==
[2022-07-04 10:09] LABS: 24HR. Urine Creatinine 0.72 g/24 HR (0.70-1.90)
[2022-07-10 13:07] LABS: Metanephrine, Ur 17 ug/L (Undefined); Metanephrines, 24Ur 24 ug/24 hr (36-209); Normetanephrines, 24Ur 172 ug/24 hr (131-612); Normetanephrines, Ur 123 ug/L (Undefined)
[2022-07-10 15:16] LABS: 5-HIAA, 24UR 3.4 mg/24 hr (0.0-14.9); 5-HIAA, UR 2.4 mg/L (Undefined)
== END | disposition home or self-care (01) ==
LOC: LABSPEC 09:19
PROVIDERS: PCP Family Medicine; Referring Provider Family Medicine; Visit Provider Family Medicine
DX: R23.2 Flushing (principal)
CPT/HCPCS: 81050; 82570; 83497; 83835

== ENCOUNTER 2022-07-05 10:55 | Observation (INO) | payer MEDICARE, OTHER, SELFPAY ==
[2022-07-05] VITALS (9 sets, daily range): BP systolic 126–161; BP diastolic 60–86; PULSE 56–81; RESP 10–18; TEMP 35.6–36.7; O2SAT 95–98; BMI 28.8; BMI 27.7
--- NOTE | 2022-07-05 11:15 | EKG12_ITS ---
Test Reason : SYNCOPE Blood Pressure : / mmHG Vent. Rate : 062 BPM Atrial Rate : 062 BPM P-R Int : 206 ms QRS Dur : 098 ms QT Int : 462 ms P-R-T Axes : 055 001 037 degrees QTc Int : 468 ms Normal sinus rhythm Septal infarct , age undetermined Abnormal ECG Confirmed by YULIET MURRY, MAREK ([id number]), restaurant expeditor ROSI HOANG ([id number]) on 07/07/2022 10:03:43 AM Referred By: TRISTON Confirmed By:MAREK HORVATH MD
--- NOTE | 2022-07-05 11:16 | EX.ED.DYSGE1 ---
HPI History of Present Illness Chief Complaint: Syncope Narrative Narrative: Patient presents via EMS with syncopal episode. She states she was getting a pedicure, and the next thing she knew they were waking her up to get on the cot because it was reported that she had passed out. She relates history that she had multiple episodes of syncope in the past. She thought it was secondary to a medication that decreased the water in her body. She stopped taking that medication and has not had a syncopal episode over the last 6 to 7 years. She states that she was even going to be sent to [facility] for a tilt table test, however, after she stopped the medication she no longer had problems. She states she feels back to normal currently. She did not have any prodromal symptoms such as chest pain or shortness of breath, no lightheadedness. [facility] Medical History (Updated 07/05/22 @ 14:[address] Yasmin Spivey, DO) Altered mental status Essential hypertension Hyperlipidemia Pure hypercholesterolemia Stage 3b chronic kidney disease (CKD) Syncope TIA (transient ischemic attack) Vasovagal syncopes Home Medications aspirin 81 mg tablet,delayed release (Adult Low Dose Aspirin) 81 mg PO DAILY 03/14/18 [History Last Taken 07/05/22] mometasone 50 mcg/actuation nasal spray 1 spray intranasal DAILY allergies 03/14/18 [History Last Taken Unknown] zolpidem 5 mg tablet 5 mg PO QHS PRN Sleep 03/14/18 [History Last Taken 07/04/22] lorazepam 0.5 mg tablet 0.5 mg PO DAILY PRN Anxiety 04/03/19 [History Last Taken 07/04/22] carvedilol 12.5 mg tablet 12.5 mg PO BID #180 tabs 08/12/21 [Rx Last Taken 07/05/22] clonidine HCl 0.1 mg tablet 0.1 mg PO Q12H #180 tabs 08/12/21 [Rx Last Taken 07/05/22] famotidine 20 mg tablet (Pepcid) 20 mg PO BID 07/05/22 [History Last Taken 07/04/22] nitrofurantoin monohydrate/macrocrystals 100 mg capsule (Macrobid) 100 mg PO BID uti 07/05/22 [History Last Taken 07/04/22] ondansetron HCl 8 mg tablet 8 mg PO Q8H PRN Nausea 07/05/22 [History Last Taken 07/05/22] Allergy/AdvReac Type Severity Reaction Status Date / Time amlodipine Allergy Severe Mouth Sores Verified 06/26/22 17:31 diltiazem [From Cardizem] Allergy Intermediate Mouth Verified 06/26/22 17:31 Ulcers atorvastatin AdvReac Intermediate Nausea Verified 06/26/22 17:31 losartan [From Cozaar] AdvReac Intermediate cough Verified 06/26/22 17:31 nitrofurantoin AdvReac Intermediate Nausea/Vomi Verified 06/26/22 17:31 [From Macrobid] ting paroxetine [From Paxil] AdvReac Intermediate Vomiting Verified 06/26/22 17:31 chlorthalidone AdvReac Mild Nausea Verified 06/26/22 17:31 erythromycin base AdvReac Unknown Unknown Verified 06/26/22 17:31 Family History Mother No problems noted. Father No problems noted. Sister Diabetes Sister Hyperlipidemia Daughter Hypertension Son Hypertension Surgical History History of tonsillectomy Social History Smoking Status: Never smoker alcohol intake: never caffeine: Yes (1) Type: carbonated beverages and coffee what type of physical activity do you participate in: none ROS ROS ED ROS Narrative Constitutional: No fever, no chills. HEENT: No sore throat. No neck pain. No loss of vision. No rhinorrhea. Cardiovascular: No chest pain. No palpitations. No pedal edema. Reported syncope. Respiratory: No cough, no shortness of breath. Abdominal: No abdominal pain. No nausea. No vomiting. Genitourinary: No dysuria. No hematuria. Musculoskeletal: No myalgias. No arthralgias. Neurologic: No headaches. No dizziness. No lightheadedness. Skin: No rash. No change in color. Psychiatric: No depression. No anxiety. EXAM Physical Exam Narrative Exam Narrative: Afebrile. Vital signs noted. HEENT: Normocephalic. Atraumatic. PERRL, EOMI. Neck soft and supple. No point tenderness or step off. Cardiovascular: Positive bradycardia. No murmurs, rubs, or gallops appreciated. Respiratory: No tachypnea. Lungs clear to auscultation bilaterally. Gastrointestinal: Abdomen soft, nontender, with normoactive bowel sounds. No rebound or guarding. Neurological: Awake. Alert. Nonfocal, nonlateralizing. Skin: No rash. Normal color. No pallor. Musculoskeletal: No pedal edema. Full range of motion extremities. Const Vital Signs: 07/05/22 10:56 07/05/22 12:21 07/05/22 14:03 Temperature 96.0 F L Temperature Source Temporal Pulse Rate 10 L 73 Pulse Rate [Lying] 70 Pulse Rate [Standing (for 1 minute prior to obtaining)] 71 Respiratory Rate 56 H 12 Blood Pressure 127/60 H 158/81 H Blood Pressure [Lying] 153/74 H Blood Pressure [Sitting (for 1 minute prior to obtaining)] 146/79 H Blood Pressure [Standing (for 1 minute prior to obtaining)] 126/79 H Blood Pressure Mean 82 106 Blood Pressure Mean [Lying] 100 Blood Pressure Mean [Sitting (for 1 minute prior to obtaining)] 101 Blood Pressure Mean [Standing (for 1 minute prior to obtaining)] 94 Pulse Ox 95 97 Oxygen Delivery Method Room Air Room Air MDM MDM MDM Narrative Medical decision making narrative: Comprehensive work-up was pursued. Her EKG interpreted by myself shows normal sinus rhythm at 62 bpm without ectopy or acute ST changes. No STEMI. CBC shows slightly elevated white count of 11.6 which is nonspecific, hemoglobin stable. Urinalysis negative for infection. She has slightly elevated baseline creatinine with chronic kidney disease but no evidence of profound dehydration. Given that she had no prodromal symptoms and she states that this is different than her previous vasovagal syncopes and that she was not feeling any pain or stress and did not feel as if she were going to pass out like she had in the past, I do feel that she merits at least observation. I discussed patient with Dr. Burgos who agrees with observation to see if there is any evidence of rhythm change and perhaps getting an echocardiogram to look at her left ventricular function. He states that she has been stable for the last 6 to 7 years and has not required work-up for her syncope. I discussed patient with Dr. Spivey for observation in the PCU. Patient is in stable condition. Lab Data Attestation: I reviewed the patient's lab results. Labs: Laboratory Results - last 24 hr 07/05/22 07/05/22 07/05/22 11:00 11:00 11:47 WBC Cancelled Cancelled Corrected WBC Cancelled Cancelled RBC Cancelled Cancelled Hgb Cancelled Cancelled Hct Cancelled Cancelled MCV Cancelled Cancelled MCH Cancelled Cancelled MCHC Cancelled Cancelled RDW Std Deviation Cancelled Cancelled RDW Coeff of [place] Cancelled Cancelled Plt Count Cancelled Cancelled MPV Cancelled Cancelled Immature Gran % (Auto) Cancelled Cancelled Neut % (Auto) Cancelled Cancelled Lymph % (Auto) Cancelled Cancelled Ashley % (Auto) Cancelled Cancelled Eos % (Auto) Cancelled Cancelled Baso % (Auto) Cancelled Cancelled Absolute Neuts (auto) Cancelled Cancelled Absolute Lymphs (auto) Cancelled Cancelled Total Counted Cancelled Cancelled Neutrophils % (Manual) Cancelled Cancelled Band Neutrophils % Cancelled Cancelled Lymphocytes % (Manual) Cancelled Cancelled Monocytes % (Manual) Cancelled Cancelled Eosinophils % (Manual) Cancelled Cancelled Basophils % (Manual) Cancelled Cancelled Metamyelocytes % Cancelled Cancelled Myelocytes % Cancelled Cancelled Promyelocytes % Cancelled Cancelled Blast Cells % Cancelled Cancelled Plasma Cell % (Manual) Cancelled Cancelled Other Cells % Cancelled Cancelled Nucleated RBC % Cancelled Cancelled Nucleated RBCs/100 WBC Cancelled Cancelled Differential Comment Cancelled Cancelled Diff Path Review Cancelled Cancelled Hypersegmented Neuts Cancelled Cancelled Atypical Lymphocytes Cancelled Cancelled Reactive Lymphocytes Cancelled Cancelled Smudge Cells Cancelled Cancelled Toxic Granulation Cancelled Cancelled Toxic Vacuolation Cancelled Cancelled Dohle Bodies Cancelled Cancelled Jocelyne Rods Cancelled Cancelled Platelet Estimate Cancelled Cancelled Plt Morphology Comment Cancelled Cancelled RBC Morphology Cancelled Cancelled Polychromasia Cancelled Cancelled Hypochromasia Cancelled Cancelled Poikilocytosis Cancelled Cancelled Basophilic Stippling Cancelled Cancelled Anisocytosis Cancelled Cancelled Microcytosis Cancelled Cancelled Macrocytosis Cancelled Cancelled Spherocytes Cancelled Cancelled Sickle Cells Cancelled Cancelled Target Cells Cancelled Cancelled Tear Drop Cells Cancelled Cancelled Ovalocytes Cancelled Cancelled Stomatocytes Cancelled Cancelled Mari-Combine Bodies Cancelled Cancelled Harmony Cells Cancelled Cancelled Bite Cells Cancelled Cancelled Crenated Cell Cancelled Cancelled Acanthocytes (Spur) Cancelled Cancelled Rouleaux Cancelled Cancelled Schistocytes Cancelled Cancelled Sodium Cancelled Potassium Cancelled Chloride Cancelled Carbon Dioxide Cancelled Anion Gap Cancelled BUN Cancelled Creatinine Cancelled Estim Creat Clear Calc Cancelled Est GFR (MDRD) Af Amer Cancelled Est GFR (MDRD) Non-Af Cancelled BUN/Creatinine Ratio Cancelled Glucose Cancelled Calcium Cancelled Total Bilirubin Cancelled AST Cancelled ALT Cancelled Alkaline Phosphatase Cancelled Troponin I High Sens Cancelled Total Protein Cancelled Albumin Cancelled Globulin Cancelled Albumin/Globulin Ratio Cancelled Urine Color Urine Clarity Urine pH Ur Specific Alton Urine Protein Urine Glucose (UA) Urine Ketones Urine Occult Blood Urine Nitrite Urine Bilirubin Urine Urobilinogen Ur Leukocyte Esterase Urine RBC Urine WBC Ur Squamous Epith Cells Urine Bacteria Urine Mucus 07/05/22 07/05/22 07/05/22 11:47 12:10 12:34 WBC Corrected WBC RBC Hgb Hct MCV MCH MCHC RDW Std Deviation RDW Coeff of [place] Plt Count MPV Immature Gran % (Auto) Neut % (Auto) Lymph % (Auto) Ashley % (Auto) Eos % (Auto) Baso % (Auto) Absolute Neuts (auto) Absolute Lymphs (auto) Total Counted Neutrophils % (Manual) Band Neutrophils % Lymphocytes % (Manual) Monocytes % (Manual) Eosinophils % (Manual) Basophils % (Manual) Metamyelocytes % Myelocytes % Promyelocytes % Blast Cells % Plasma Cell % (Manual) Other Cells % Nucleated RBC % Nucleated RBCs/100 WBC Differential Comment Diff Path Review Hypersegmented Neuts Atypical Lymphocytes Reactive Lymphocytes Smudge Cells Toxic Granulation Toxic Vacuolation Dohle Bodies Jocelyne Rods Platelet Estimate Plt Morphology Comment RBC Morphology Polychromasia Hypochromasia Poikilocytosis Basophilic Stippling Anisocytosis Microcytosis Macrocytosis Spherocytes Sickle Cells Target Cells Tear Drop Cells Ovalocytes Stomatocytes Mari-Combine Bodies Harmony Cells Bite Cells Crenated Cell Acanthocytes (Spur) Rouleaux Schistocytes Sodium Cancelled 140 Potassium Cancelled 3.7 Chloride Cancelled 110 H Carbon Dioxide Cancelled 26.0 Anion Gap Cancelled 4 L BUN Cancelled 18 Creatinine Cancelled 1.36 H Estim Creat Clear Calc Cancelled 29.19 Est GFR (MDRD) Af Amer Cancelled 48 L Est GFR (MDRD) Non-Af Cancelled 40 L BUN/Creatinine Ratio Cancelled 13.2 Glucose Cancelled 104 Calcium Cancelled 8.3 L Total Bilirubin Cancelled 0.70 AST Cancelled 17 ALT Cancelled 22 Alkaline Phosphatase Cancelled 72 Troponin I High Sens Cancelled 5 Total Protein Cancelled 6.1 L Albumin Cancelled 3.3 Globulin Cancelled 2.8 Albumin/Globulin Ratio Cancelled 1.2 Urine Color Straw Urine Clarity Clear Urine pH 7.0 Ur Specific Alton 1.010 Urine Protein Negative Urine Glucose (UA) Normal Urine Ketones Negative Urine Occult Blood Negative Urine Nitrite Negative Urine Bilirubin Negative Urine Urobilinogen Normal Ur Leukocyte Esterase 100 H Urine RBC 0 SEEN Urine WBC 0-5 SEEN Ur Squamous Epith Cells 0-5 SEEN Urine Bacteria 0 SEEN Urine Mucus 0 SEEN 07/05/22 12:56 WBC 11.6 H Corrected WBC RBC 4.60 Hgb 13.6 Hct 40.7 MCV 88.5 MCH 29.6 MCHC 33.4 RDW Std Deviation 42.0 RDW Coeff of [place] 13.0 Plt Count 174 MPV 11.7 Immature Gran % (Auto) 0.400 Neut % (Auto) 73.8 H Lymph % (Auto) 16.0 L Ashley % (Auto) 8.6 Eos % (Auto) 0.7 Baso % (Auto) 0.5 Absolute Neuts (auto) 8.5 H Absolute Lymphs (auto) 1.85 Total Counted Neutrophils % (Manual) Band Neutrophils % Lymphocytes % (Manual) Monocytes % (Manual) Eosinophils % (Manual) Basophils % (Manual) Metamyelocytes % Myelocytes % Promyelocytes % Blast Cells % Plasma Cell % (Manual) Other Cells % Nucleated RBC % 0 Nucleated RBCs/100 WBC Differential Comment Diff Path Review Hypersegmented Neuts Atypical Lymphocytes Reactive Lymphocytes Smudge Cells Toxic Granulation Toxic Vacuolation Dohle Bodies Jocelyne Rods Platelet Estimate Plt Morphology Comment RBC Morphology Polychromasia Hypochromasia Poikilocytosis Basophilic Stippling Anisocytosis Microcytosis Macrocytosis Spherocytes Sickle Cells Target Cells Tear Drop Cells Ovalocytes Stomatocytes Mari-Combine Bodies Daphnie Cells Bite Cells Crenated Cell Acanthocytes (Spur) Rouleaux Schistocytes Sodium Potassium Chloride Carbon Dioxide Anion Gap BUN Creatinine Estim Creat Clear Calc Est GFR (MDRD) Af Amer Est GFR (MDRD) Non-Af BUN/Creatinine Ratio Glucose Calcium Total Bilirubin AST ALT Alkaline Phosphatase Troponin I High Sens Total Protein Albumin Globulin Albumin/Globulin Ratio Urine Color Urine Clarity Urine pH Ur Specific [place] Urine Protein Urine Glucose (UA) Urine Ketones Urine Occult Blood Urine Nitrite Urine Bilirubin Urine Urobilinogen Ur Leukocyte Esterase Urine RBC Urine WBC Ur Squamous Epith Cells Urine Bacteria Urine Mucus Discharge Plan Dx/Rx/DC Orders Clinical Impression: Syncope and collapse, History of transient ischemic attack, Vasovagal syncopes Disposition Disposition: Acute [facility]
[2022-07-05] MEDS: 0.9% Normal Saline 1,000 ML 1000 ML IV (11:29)
[2022-07-05] MEDS: 0.9% Normal Saline 1,000 ML 150 ML IV (11:30)
--- NOTE | 2022-07-05 11:45 | ED.RN ---
Blood contaminated called from lab. Blood redrawn by Monica SNOW.
[2022-07-05 12:39] LABS: Bacteria 0 SEEN /hpf (None Seen); Mucous, Urine 0 SEEN /hpf (<or=2+); Red Blood Cells-Urine 0 SEEN /hpf (0-5)
[2022-07-05 12:42] LABS: Color, Urine Straw (Yellow); Glucose, Dipstick Normal (Normal); Ketone-Dipstick Negative (Negative); Leukocyte Esterase-Dipstick 100 /ul (Negative); Nitrite-Dipstick Negative (Negative); Occult Blood-Urine Negative /ul (Negative); Protein-Dipstick Negative (Negative); Urine Bilirubin Dipstick Negative (Negative); Urine Clarity Clear (Clear); Urine Urobilinogen Normal (Normal)
[2022-07-05 12:44] LABS: ALB/GLOB Ratio 1.2 RATIO (0.9-2.4); AST(SGOT) 17 U/L (15-37); Alanine Aminotransfer ALT/SGPT 22 U/L (13-56); Albumin, Serum 3.3 g/dL (3.2-5.0); Alkaline Phosphatase 72 U/L (45-117); Anion Gap 4 (5-15); BUN 18 mg/dL (7-18); BUN/Creat Ratio 13.2 RATIO (10-20); Calcium,Total 8.3 mg/dL (8.5-10.1); Chloride 110 mmol/L (98-107); Creatinine, Serum 1.36 mg/dL (0.55-1.02); EST Glomerular Filtration Rate 40 mL/min (>60); Est Glom Filt Rate - Afr Amer 48 mL/min (>60); Estimated Creatinine Clearance 29.19 ml/min; Globulin 2.8 g/dL (2.2-4.2); Glucose 104 mg/dL (74-106); Potassium 3.7 mmol/L (3.5-5.1); Protein, Total 6.1 g/dL (6.4-8.2); Sodium Level 140 mmol/L (136-145); Troponin-I HS (w/2H Reflex) 5 pg/mL (3.0-54.0)
--- NOTE | 2022-07-05 12:46 | ED.RN ---
lab specimen rejected x2. lab will be up to draw patient.
[2022-07-05 13:03] LABS: Absolute Lymphocyte Count 1.85 X10^3/uL (0.83-4.51); Absolute Neutrophil Count 8.5 X10^3/uL (2.0-7.7); Basophil# 0.06 X10^3/uL; Basophil% 0.5 % (0-1); Eosinophil# 0.08 X10^3/uL; Eosinophils% 0.7 % (0-5); Hematocrit 40.7 % (37-47); Hemoglobin 13.6 g/dL (12.0-15.0); Lymphocyte # 1.85 X10^3/ul (0.83-4.51); Mean Corp Hgb Conc 33.4 g/dL (32-36); Mean Corpuscular Hgb 29.6 pg (27.0-32.0); Mean Corpuscular Volume 88.5 fL (81-99); Mean Platelet Vol. 11.7 fl (6.2-12.0); Monocyte% 8.6 % (0-10); NRBC Flagged by Analyzer 0 % (0-5); Neutrophil # 8.54 X10^3/uL (2.7-7.7); Neutrophil % 73.8 % (47-70); Platelet Count 174 K/mm3 (150-450); White Blood Count 11.6 K/mm3 (4.4-11.0)
[2022-07-05 13:03] LABS: Squamous Epithelial Cells - UA 0-5 SEEN /hpf (5-10); White Blood Cells 0-5 SEEN /hpf (0-5)
[2022-07-05 14:23] LABS: Reflex Troponin-HS? (from REC) Y
--- NOTE | 2022-07-05 14:25 | NURSING ---
DR TRINY REDMOND
--- NOTE | 2022-07-05 14:37 | PCM.HP.STD ---
HPI - General General Date of Admission: 07/05/22 Date of Service: 07/05/22 Chief Complaint: Syncope HPI Narrative THERESA ROSAS, is a 81 F who presented to the emergency department [facility] on 07/05/2022 after suffering a syncopal event while she was getting her nails done today. 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 She is had extensive work-up previously for this and has not had an event in some time. She states she woke up this morning and was feeling well went to the place where she gets her nails done and was sitting in the chair getting her toenails done and feels that she possibly was experiencing some pain and that the last thing she remembers. They called the squad and in route she awakened and was back to her normal baseline self. She had no prodrome as she typically gets with her syncopal episodes. She also comments that she has been feeling a bit under the weather over the last week. She states that she has been having nocturnal hot flashes that are associated with some nausea. She has not assessed her blood pressure during these times. She did follow with her primary care physician indicated that work-up is in progress and she has another visit with them next week. She has not had a hot flash in the last couple days and the nausea has subsided in the last 24 hours. She also complains of some constipation which she suffers from intermittently. Her appetite has been to suppressed however she states she is hungry at this time. Her temperature at the time of arrival was 96.0, heart rate has been anywhere from 70-73, blood pressure 127/60, respiratory rate was 12 and oxygen saturations are 95% on room air. Her CBC shows a mild leukocytosis with a white count of 11.6 but is otherwise unremarkable. Her BMP is unremarkable and shows stable baseline CKD with a serum creatinine of 1.36. LFTs are unremarkable. Her urine has leuk esterase but no white cells and no bacteria. She is currently being treated for UTI with Macrobid. EKG showed normal sinus rhythm without any ST-T wave changes consistent with acute ischemia. [facility] Medical History Altered mental status Essential hypertension Hyperlipidemia Pure hypercholesterolemia Stage 3b chronic kidney disease (CKD) Syncope TIA (transient ischemic attack) Vasovagal syncopes Home Medications aspirin 81 mg tablet,delayed release (Adult Low Dose Aspirin) 81 mg PO DAILY 03/14/18 [History Last Taken 07/05/22] mometasone 50 mcg/actuation nasal spray 1 spray intranasal DAILY allergies 03/14/18 [History Last Taken Unknown] zolpidem 5 mg tablet 5 mg PO QHS PRN Sleep 03/14/18 [History Last Taken 07/04/22] lorazepam 0.5 mg tablet 0.5 mg PO DAILY PRN Anxiety 04/03/19 [History Last Taken 07/04/22] carvedilol 12.5 mg tablet 12.5 mg PO BID #180 tabs 08/12/21 [Rx Last Taken 07/05/22] clonidine HCl 0.1 mg tablet 0.1 mg PO Q12H #180 tabs 08/12/21 [Rx Last Taken 07/05/22] famotidine 20 mg tablet (Pepcid) 20 mg PO BID 07/05/22 [History Last Taken 07/04/22] nitrofurantoin monohydrate/macrocrystals 100 mg capsule (Macrobid) 100 mg PO BID uti 07/05/22 [History Last Taken 07/04/22] ondansetron HCl 8 mg tablet 8 mg PO Q8H PRN Nausea 07/05/22 [History Last Taken 07/05/22] Allergy/AdvReac Type Severity Reaction Status Date / Time amlodipine Allergy Severe Mouth Sores Verified 06/26/22 17:31 diltiazem [From Cardizem] Allergy Intermediate Mouth Verified 06/26/22 17:31 Ulcers atorvastatin AdvReac Intermediate Nausea Verified 06/26/22 17:31 losartan [From Cozaar] AdvReac Intermediate cough Verified 06/26/22 17:31 nitrofurantoin AdvReac Intermediate Nausea/Vomi Verified 06/26/22 17:31 [From Macrobid] ting paroxetine [From Paxil] AdvReac Intermediate Vomiting Verified 06/26/22 17:31 chlorthalidone AdvReac Mild Nausea Verified 06/26/22 17:31 erythromycin base AdvReac Unknown Unknown Verified 06/26/22 17:31 Family History Mother No problems noted. Father No problems noted. Sister Diabetes Sister Hyperlipidemia Daughter Hypertension Son Hypertension Surgical History History of tonsillectomy Social History (Updated 07/05/22 @ 15:[address] Yasmin Spivey DO) Smoking Status: Never smoker alcohol intake: never substance use type: does not use caffeine: Yes (1) Type: carbonated beverages and coffee what type of physical activity do you participate in: none ROS Constitutional Constitutional: Reports other Details: Intermittent nocturnal hot flashes ; Denies anorexia, change in weight, chills, fatigue, fever(s), malaise, night sweats or weakness Eyes Eyes: Denies blurry vision, change in eye color, change in vision, discharge from eye(s), double vision, erythema, eye pain, loss of vision or other ENT HEENT: Denies abnormal hearing, dysphagia, ear pain, epistaxis, headache(s), hearing loss, nasal congestion, nasal discharge, post nasal drip, sinus pressure, sore throat or other Cardiovascular Cardiovascular: Reports syncope; Denies chest pain, claudication, dyspnea on exertion, edema, lightheadedness, orthopnea, palpitations, paroxysmal nocturnal dyspnea, rapid heart rate or other Respiratory/Chest Respiratory/Chest: Denies cough, dyspnea, excessive phlegm production, hemoptysis, productive cough, shortness of breath at rest, shortness of breath with exertion, wheezing or other Gastrointestinal Gastrointestinal: Reports constipation, nausea and other Details: Decreased appetite ; Denies abdominal pain, coffee ground emesis, diarrhea, dyspepsia, hematemesis, hematochezia, loose stools, melena or vomiting Genitourinary Genitourinary: Reports other Details: Currently being treated for UTI ; Denies burning urination, difficulty urinating, dysuria, hematuria, nocturia, urinary frequency, urinary hesitancy, urinary incontinence or urinary urgency Neurologic Neurologic: Denies abnormal gait, abnormal speech, confusion, disequilibrium, dizziness, focal weakness, headache(s), numbness, paresthesias, seizure-like activity, seizures, syncope, tingling, tremor(s) or other Psychiatric Psychiatric: Reports anxiety; Denies depression, homicidal ideation, suicidal ideation or other Endocrine Endocrinology: Denies change in body appearance, cold intolerance, excessive sweating, heat intolerance, polydipsia, polyuria or other Hematologic/Lymphatic Hematologic/Lymphatic: Denies anemia, easy bleeding, easy bruising, lymphadenopathy or other Allergic/Immunologic Allergic/Immunologic: Denies rhinitis, hives, eczemia, asthma or other Vital Signs Vital Signs Vital Signs: 07/05/22 10:56 07/05/22 12:21 07/05/22 14:03 Temperature 96.0 F L Temperature Source Temporal Pulse Rate 10 L 73 Pulse Rate [Lying] 70 Pulse Rate [Standing (for 1 minute prior to obtaining)] 71 Respiratory Rate 56 H 12 Blood Pressure 127/60 H 158/81 H Blood Pressure [Lying] 153/74 H Blood Pressure [Sitting (for 1 minute prior to obtaining)] 146/79 H Blood Pressure [Standing (for 1 minute prior to obtaining)] 126/79 H Blood Pressure Mean 82 106 Blood Pressure Mean [Lying] 100 Blood Pressure Mean [Sitting (for 1 minute prior to obtaining)] 101 Blood Pressure Mean [Standing (for 1 minute prior to obtaining)] 94 Pulse Ox 95 97 Oxygen Delivery Method Room Air Room Air Weight Weight: 78.6 kg Body Mass Index (BMI) 28.8 Physical Exam Const alert, oriented x3, no apparent distress, healthy appearing and well nourished Constitutional Narrative: Overweight elderly white female sitting up in bed, family member at bedside, patient appears well, nontoxic General Appearance: cooperative HEENT normocephalic, head/scalp atraumatic, hearing grossly normal bilaterally and moist oral mucous membranes HEENT Narrative: Dentures in place, Mallampati 2, no thrush Eyes PERRL, EOMs intact bilaterally and conjunctivae normal Neck no lymphadenopathy, supple, no JVD and no carotid bruits Neck Narrative: Acute midline, no thyroid enlargement Resp normal respiratory effort, no retractions, no use of accessory muscles and clear to auscultation bilaterally Auscultation: Negative for crackles, rales, rhonchi or wheezes Cardio regular rate, regular rhythm, S1 normal heart sound, S2 normal heart sound, no murmurs, no rub, no gallops, no clicks and no JVD GI normal to inspection, nondistended, normoactive bowel sounds, soft to palpation, non-tender and non-distended Extremity no clubbing, cyanosis or edema Skin no rashes or lesions noted, no wounds, skin turgor normal, no jaundice, no petechiae and no mottling Neuro oriented x3, CN's II-XII intact bilaterally, moves all extremities and no focal motor deficits Neuro Narrative: Mild generalized weakness-proximal greater than distal as expected for age Sensorium / Orientation: awake, alert, oriented to person, oriented to place and oriented to time Speech: speech normal Psych affect normal Psych Narrative: Appropriately interactive and very pleasant Results Lab / Micro Data Attestation: I reviewed the patient's lab results. Result Diagrams: 07/05/22 12:56 07/05/22 12:10 Labs: Laboratory Results - last 24 hr 07/05/22 11:00: WBC Cancelled, Corrected WBC Cancelled, RBC Cancelled, Hgb Cancelled, Hct Cancelled, MCV Cancelled, MCH Cancelled, MCHC Cancelled, RDW Std Deviation Cancelled, RDW Coeff of [place] Cancelled, Plt Count Cancelled, MPV Cancelled, Immature Gran % (Auto) Cancelled, Neut % (Auto) Cancelled, Lymph % (Auto) Cancelled, Cass % (Auto) Cancelled, Eos % (Auto) Cancelled, Baso % (Auto) Cancelled, Absolute Neuts (auto) Cancelled, Absolute Lymphs (auto) Cancelled, Total Counted Cancelled, Neutrophils % (Manual) Cancelled, Band Neutrophils % Cancelled, Lymphocytes % (Manual) Cancelled, Monocytes % (Manual) Cancelled, Eosinophils % (Manual) Cancelled, Basophils % (Manual) Cancelled, Metamyelocytes % Cancelled, Myelocytes % Cancelled, Promyelocytes % Cancelled, Blast Cells % Cancelled, Plasma Cell % (Manual) Cancelled, Other Cells % Cancelled, Nucleated RBC % Cancelled, Nucleated RBCs/100 WBC Cancelled, Differential Comment Cancelled, Diff Path Review Cancelled, Hypersegmented Neuts Cancelled, Atypical Lymphocytes Cancelled, Reactive Lymphocytes Cancelled, Smudge Cells Cancelled, Toxic Granulation Cancelled, Toxic Vacuolation Cancelled, Dohle Bodies Cancelled, Jocelyne Rods Cancelled, Platelet Estimate Cancelled, Plt Morphology Comment Cancelled, RBC Morphology Cancelled, Polychromasia Cancelled, Hypochromasia Cancelled, Poikilocytosis Cancelled, Basophilic Stippling Cancelled, Anisocytosis Cancelled, Microcytosis Cancelled, Macrocytosis Cancelled, Spherocytes Cancelled, Sickle Cells Cancelled, Target Cells Cancelled, Tear Drop Cells Cancelled, Ovalocytes Cancelled, Stomatocytes Cancelled, [place] Bodies Cancelled, Daphnie Cells Cancelled, Bite Cells Cancelled, Crenated Cell Cancelled, Acanthocytes (Spur) Cancelled, Rouleaux Cancelled, Schistocytes Cancelled 07/05/22 11:00: Sodium Cancelled, Potassium Cancelled, Chloride Cancelled, Carbon Dioxide Cancelled, Anion Gap Cancelled, BUN Cancelled, Creatinine Cancelled, Estim Creat Clear Calc Cancelled, Est GFR (MDRD) Af Amer Cancelled, Est GFR (MDRD) Non-Af Cancelled, BUN/Creatinine Ratio Cancelled, Glucose Cancelled, Calcium Cancelled, Total Bilirubin Cancelled, AST Cancelled, ALT Cancelled, Alkaline Phosphatase Cancelled, Troponin I High Sens Cancelled, Total Protein Cancelled, Albumin Cancelled, Globulin Cancelled, Albumin/Globulin Ratio Cancelled 07/05/22 11:47: WBC Cancelled, Corrected WBC Cancelled, RBC Cancelled, Hgb Cancelled, Hct Cancelled, MCV Cancelled, MCH Cancelled, MCHC Cancelled, RDW Std Deviation Cancelled, RDW Coeff of [place] Cancelled, Plt Count Cancelled, MPV Cancelled, Immature Gran % (Auto) Cancelled, Neut % (Auto) Cancelled, Lymph % (Auto) Cancelled, Cass % (Auto) Cancelled, Eos % (Auto) Cancelled, Baso % (Auto) Cancelled, Absolute Neuts (auto) Cancelled, Absolute Lymphs (auto) Cancelled, Total Counted Cancelled, Neutrophils % (Manual) Cancelled, Band Neutrophils % Cancelled, Lymphocytes % (Manual) Cancelled, Monocytes % (Manual) Cancelled, Eosinophils % (Manual) Cancelled, Basophils % (Manual) Cancelled, Metamyelocytes % Cancelled, Myelocytes % Cancelled, Promyelocytes % Cancelled, Blast Cells % Cancelled, Plasma Cell % (Manual) Cancelled, Other Cells % Cancelled, Nucleated RBC % Cancelled, Nucleated RBCs/100 WBC Cancelled, Differential Comment Cancelled, Diff Path Review Cancelled, Hypersegmented Neuts Cancelled, Atypical Lymphocytes Cancelled, Reactive Lymphocytes Cancelled, Smudge Cells Cancelled, Toxic Granulation Cancelled, Toxic Vacuolation Cancelled, Dohle Bodies Cancelled, Jocelyne Rods Cancelled, Platelet Estimate Cancelled, Plt Morphology Comment Cancelled, RBC Morphology Cancelled, Polychromasia Cancelled, Hypochromasia Cancelled, Poikilocytosis Cancelled, Basophilic Stippling Cancelled, Anisocytosis Cancelled, Microcytosis Cancelled, Macrocytosis Cancelled, Spherocytes Cancelled, Sickle Cells Cancelled, Target Cells Cancelled, Tear Drop Cells Cancelled, Ovalocytes Cancelled, Stomatocytes Cancelled, [place] Bodies Cancelled, Daphnie Cells Cancelled, Bite Cells Cancelled, Crenated Cell Cancelled, Acanthocytes (Spur) Cancelled, Rouleaux Cancelled, Schistocytes Cancelled 07/05/22 11:47: Sodium Cancelled, Potassium Cancelled, Chloride Cancelled, Carbon Dioxide Cancelled, Anion Gap Cancelled, BUN Cancelled, Creatinine Cancelled, Estim Creat Clear Calc Cancelled, Est GFR (MDRD) Af Amer Cancelled, Est GFR (MDRD) Non-Af Cancelled, BUN/Creatinine Ratio Cancelled, Glucose Cancelled, Calcium Cancelled, Total Bilirubin Cancelled, AST Cancelled, ALT Cancelled, Alkaline Phosphatase Cancelled, Troponin I High Sens Cancelled, Total Protein Cancelled, Albumin Cancelled, Globulin Cancelled, Albumin/Globulin Ratio Cancelled 07/05/22 12:10: Sodium 140, Potassium 3.7, Chloride 110 H, Carbon Dioxide 26.0, Anion Gap 4 L, BUN 18, Creatinine 1.36 H, Estim Creat Clear Calc 29.19, Est GFR (MDRD) Af Amer 48 L, Est GFR (MDRD) Non-Af 40 L, BUN/Creatinine Ratio 13.2, Glucose 104, Calcium 8.3 L, Total Bilirubin 0.70, AST 17, ALT 22, Alkaline Phosphatase 72, Troponin I High Sens 5, Total Protein 6.1 L, Albumin 3.3, Globulin 2.8, Albumin/Globulin Ratio 1.2 07/05/22 12:34: Urine Color Straw, Urine Clarity Clear, Urine pH 7.0, Ur Specific [place] 1.010, Urine Protein Negative, Urine Glucose (UA) Normal, Urine Ketones Negative, Urine Occult Blood Negative, Urine Nitrite Negative, Urine Bilirubin Negative, Urine Urobilinogen Normal, Ur Leukocyte Esterase 100 H, Urine RBC 0 SEEN, Urine WBC 0-5 SEEN, Ur Squamous Epith Cells 0-5 SEEN, Urine Bacteria 0 SEEN, Urine Mucus 0 SEEN 07/05/22 12:56: WBC 11.6 H, RBC 4.60, Hgb 13.6, Hct 40.7, MCV 88.5, MCH 29.6, MCHC 33.4, RDW Std Deviation 42.0, RDW Coeff of [place] 13.0, Plt Count 174, MPV 11.7, Immature Gran % (Auto) 0.400, Neut % (Auto) 73.8 H, Lymph % (Auto) 16.0 L, Cass % (Auto) 8.6, Eos % (Auto) 0.7, Baso % (Auto) 0.5, Absolute Neuts (auto) 8.5 H, Absolute Lymphs (auto) 1.85, Nucleated RBC % 0 Assessment & Plan Assessment/Plan (1) Syncope: PLAN: Plan Syncopal event with history of vasovagal syncope -Short syncopal event this afternoon while getting her nails done -Per discussion with the patient there was some pain involved so I suspect this is likely vasovagal -Case was discussed with her primary metabolic specialist who knows her well -Monitor monitored on telemetry and check an echocardiogram -Echocardiogram ordered--> last echo was 2023 and showed an EF of 60% -Check TSH -EKG is overall unremarkable -Patient was asymptomatic during orthostatic vitals Intermittent hot flashes/nausea -Patient has been experiencing episodes over the past week or so with nocturnal hot flashes and associated nausea -Nausea has improved in the last 24 hours with no further hot flashes -Work-up has been initiated by primary care physician -Encouraged follow-up with PCP after discharge with regards to the above Hypertension -Continue home carvedilol 12.5 mg twice daily -Continue home clonidine 0.1 mg twice daily UTI with staph hemolyticus -Continue home Macrobid twice daily Hyperlipidemia -Patient's not on any medications for this -Allow for outpatient follow-up History of TIA -Continue aspirin CKD stage IIIb -Serum creatinine is at baseline at 1.36 DVT prophylaxis -Lovenox -SCDs CODE STATUS -Full code Charges/Coding Visit Charges Inpatient E&M: 17865 Init Hosp L2
--- NOTE | 2022-07-05 14:41 | NURSING ---
PCU OBS TRINY SYNCOPE
[2022-07-05 15:05] LABS: Troponin-I HS 5 pg/mL (3.0-54.0)
--- NOTE | 2022-07-05 15:27 | ECHOD_ITS ---
Reason For Study: SYNCOPE Procedure This was a 2D Doppler, Color Flow transthoracic echocardiogram. The study was technically difficult. Exam performed portable in patient room. Left Ventricle Normal LV size. Sigmoid septum. Left ventricular systolic function is normal. The estimated ejection fraction is 55 %. Septal motion consistent with IVCD. Diastolic function is indeterminate. Right Ventricle Normal RV size. Normal systolic function. Atria The left atrium is mildly enlarged. Normal right atrium. Lipomatous hypertrophy of the atrial septum. No doppler evidence for ASD. Mitral Valve There is mild to moderate mitral annular calcification. Extension of the mitral annular calcification onto the base of the posterior mitral valve leaflet. Mild (1+) mitral valve insufficiency. Tricuspid Valve Normal tricuspid valve. Mild tricuspid valve insufficiency. Right ventricular systolic pressure estimated to be 28 mmHg. Aortic Valve Trisinus/trileaflet aortic valve. Normal aortic valve. Trivial aortic valve insufficiency. Pulmonic Valve The pulmonic valve is not well visualized. Great Vessels Normal sized aortic root. Pericardium/Pleural No pericardial effusion. MMode/2D Measurements & Calculations LVIDd: 5.8 cm IVSd: 1.1 cm Ao root diam: 3.3 cm LVIDs: 3.8 cm LVPWd: 1.3 cm RVDd: 2.1 cm FS: 34.1 % LAV(MOD-bp): 78.9 ml LVAd ap4: 26.2 cm2 SV(MOD-sp4): 41.9 ml LAV(MOD-bp) Indexed: 43.2 ml/m2 LVLd ap4: 7.1 cm LAV(MOD-sp2): 87.6 ml EDV(MOD-sp4): 82.5 ml LAV(MOD-sp4): 66.4 ml EDV(sp4-el): 81.9 ml LVAs ap4: 17.2 cm2 LVLs ap4: 6.6 cm ESV(MOD-sp4): 40.6 ml ESV(sp4-el): 38.3 ml EF(MOD-sp4): 50.8 % EF(sp4-el): 53.2 % SV(sp4-el): 43.6 ml LA A4 area: 22.0 cm2 LA dimension(2D): 3.8 cm RA A4 area: 13.6 cm2 Time Measurements MV dec time: 0.41 sec Doppler Measurements & Calculations MV E max jazmin: 53.8 cm/sec MV V2 max: 84.1 cm/sec MV dec slope: 131.5 cm/sec2 MV A max jazmin: 82.9 cm/sec MV max P.8 mmHg MV E/A: 0.65 MV V2 mean: 45.8 cm/sec MV mean P.98 mmHg MV V2 VTI: 37.3 cm Ao V2 max: 139.1 cm/sec LV V1 max: 83.1 cm/sec PA V2 max: 64.2 cm/sec Ao max P.7 mmHg LV V1 max P.8 mmHg Ao V2 mean: 96.3 cm/sec LV V1 mean P.5 mmHg Ao mean P.3 mmHg LV V1 mean: 56.6 cm/sec Ao V2 VTI: 35.7 cm LV V1 VTI: 23.8 cm TR max jazmin: 250.2 cm/sec TR max P.0 mmHg ECHO/Echo Complete Interpretation Summary The study was technically difficult. Left ventricular systolic function is normal. The estimated ejection fraction is 55 %. Septal motion consistent with IVCD. Sigmoid septum. The left atrium is mildly enlarged. Lipomatous hypertrophy of the atrial septum. There is mild to moderate mitral annular calcification. Extension of the mitral annular calcification onto the base of the posterior mi tral valve leaflet. Mild (1+) mitral valve insufficiency. Mild tricuspid valve insufficiency. Trivial aortic valve insufficiency. Right ventricular systolic pressure estimated to be 28 mmHg. Diastolic function is indeterminate. Ordering Physician: Yasmin Spivey Referring Physician: Liz Riddle M.D. Performed By: Jennifer Cannon RCS
[2022-07-05] MEDS: Famotidine 20 MG Tablet PO (18:55)
[2022-07-05] MEDS: Carvedilol 12.5 MG Tablet PO (21:05)
[2022-07-05] MEDS: Nitrofurantoin Macrocrystals 100 MG Capsule PO (21:05)
[2022-07-05] MEDS: cloNIDine HCl 0.1 MG Tablet PO (21:05)
[2022-07-05] MEDS: LORazepam 0.5 MG Tablet PO (21:15)
[2022-07-06] VITALS (7 sets, daily range): BP systolic 116–172; BP diastolic 66–90; PULSE 57–70; RESP 18; TEMP 36.5; O2SAT 94–97
[2022-07-06] MEDS: LORazepam 0.5 MG Tablet PO (00:46)
--- NOTE | 2022-07-06 00:49 | NURSING ---
Pt requested ativan 0.5 mg again even though she had a dose with hs medications. Pt states at home she takes 1-2 tabs a day not the one daily that was ordered. Informed pt that since it is ordered daily here she won't be able to get another dose until after midnight tomorrow. Pt states she understands and hopefully will be home later today..
[2022-07-06 06:51] LABS: Anion Gap 7 (5-15); BUN 16 mg/dL (7-18); BUN/Creat Ratio 14.2 RATIO (10-20); Calcium,Total 8.6 mg/dL (8.5-10.1); Chloride 109 mmol/L (98-107); Creatinine, Serum 1.13 mg/dL (0.55-1.02); EST Glomerular Filtration Rate 49 mL/min (>60); Est Glom Filt Rate - Afr Amer 59 mL/min (>60); Estimated Creatinine Clearance 35.13 ml/min; Glucose 98 mg/dL (74-106); Magnesium 2.3 mg/dL (1.6-2.6); Phosphorus 3.4 mg/dL (2.5-4.9); Potassium 3.2 mmol/L (3.5-5.1); Sodium Level 141 mmol/L (136-145); Thyroid Stim Hormone (TSH) 1.65 uIU/mL (0.358-3.74)
[2022-07-06] MEDS: Potassium Chloride Oral Tablet 20 MEQ 60 MEQ PO (09:08)
[2022-07-06] MEDS: Aspirin E.C. 81 MG Tablet PO (09:09)
[2022-07-06] MEDS: Nitrofurantoin Macrocrystals 100 MG Capsule PO (09:09)
[2022-07-06] MEDS: Enoxaparin 40 MG/0.4 ML Syringe SC (11:10)
[2022-07-06] MEDS: Carvedilol 12.5 MG Tablet PO (11:10)
[2022-07-06] MEDS: cloNIDine HCl 0.1 MG Tablet PO (11:10)
[2022-07-06] MEDS: Famotidine 20 MG Tablet PO (11:15)
--- NOTE | 2022-07-06 11:43 | PCM.DC.SUM ---
Providers Date of Admission: 07/05/22 Date of Discharge: 07/06/22 Primary Care Physician: Dr. Liz Riddle MD Reason For Visit: syncope Diagnosis Discharge Diagnosis (1) Syncope: Status: Acute Code(s): R55 - Syncope and collapse Medications at Discharge Home Medications aspirin 81 mg tablet,delayed release (Adult Low Dose Aspirin) 81 mg PO DAILY 03/14/18 mometasone 50 mcg/actuation nasal spray 1 spray intranasal DAILY allergies 03/14/18 zolpidem 5 mg tablet 5 mg PO QHS PRN Sleep 03/14/18 lorazepam 0.5 mg tablet 0.5 mg PO DAILY PRN Anxiety 04/03/19 carvedilol 12.5 mg tablet 12.5 mg PO BID #180 tabs 08/12/21 clonidine HCl 0.1 mg tablet 0.1 mg PO Q12H #180 tabs 08/12/21 famotidine 20 mg tablet (Pepcid) 20 mg PO BID 07/05/22 nitrofurantoin monohydrate/macrocrystals 100 mg capsule (Macrobid) 100 mg PO BID uti 07/05/22 ondansetron HCl 8 mg tablet 8 mg PO Q8H PRN Nausea 07/05/22 Hospital Course Operations None Procedures 2-D Echocardiogram Summary of Care Provided Minutes Spent on Discharge: 35 Hospital Course: 81-year old female past medical history of 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 Patient stated that she has had extensive work-up for this. She had not had a syncopal episode in a while. She however has not been feeling well a week prior to admission. She had nausea with abdominal discomfort. She has been evaluated by primary care doctor for etiology. Patient was getting her nails done when while the physical science technician was working on her foot, she had a sudden onset of syncope. This lasted for a few minutes. Patient's EKG was unremarkable. Vitals were stable. She was admitted to the progressive care unit and monitored on telemetry with no acute event. At discharge vitals were positive. Patient has supine hypertension. She was started on SEVERO hoses. Her 2D echo showed EF was 55%, septal motion abnormality consistent with IVCD. Patient was asked to follow closely with her primary care doctor and to keep yourself hydrated. Physical Exam Narrative Physical exam: General: Alert, Oriented x3, Cooperative, No apparent distress HEENT: Atraumatic Oral: Moist Mucosa Neck: Supple Lungs: Clear to auscultation Cardiovascular: HS I+II, regular, no murmurs Abdomen: Bowel Sounds Present, Soft, Non Tender Extremities: No edema Skin: No rashes, No breakdown Neurological: Grossly intact Psych/Mental Status: Appropriate Weight / BMI Weight Weight: 75.614 kg Body Mass Index (BMI) 27.7 ABG / Lab / Microbiology Data Result Diagrams: 07/05/22 12:56 07/06/22 05:35 Laboratory: Laboratory Results - last 24 hr 07/05/22 11:00: Sodium Cancelled, Potassium Cancelled, Chloride Cancelled, Carbon Dioxide Cancelled, Anion Gap Cancelled, BUN Cancelled, Creatinine Cancelled, Estim Creat Clear Calc Cancelled, Est GFR (MDRD) Af Amer Cancelled, Est GFR (MDRD) Non-Af Cancelled, BUN/Creatinine Ratio Cancelled, Glucose Cancelled, Calcium Cancelled, Total Bilirubin Cancelled, AST Cancelled, ALT Cancelled, Alkaline Phosphatase Cancelled, Troponin I High Sens Cancelled, Total Protein Cancelled, Albumin Cancelled, Globulin Cancelled, Albumin/Globulin Ratio Cancelled 07/05/22 11:47: WBC Cancelled, Corrected WBC Cancelled, RBC Cancelled, Hgb Cancelled, Hct Cancelled, MCV Cancelled, MCH Cancelled, MCHC Cancelled, RDW Std Deviation Cancelled, RDW Coeff of [place] Cancelled, Plt Count Cancelled, MPV Cancelled, Immature Gran % (Auto) Cancelled, Neut % (Auto) Cancelled, Lymph % (Auto) Cancelled, [place] % (Auto) Cancelled, Eos % (Auto) Cancelled, Baso % (Auto) Cancelled, Absolute Neuts (auto) Cancelled, Absolute Lymphs (auto) Cancelled, Total Counted Cancelled, Neutrophils % (Manual) Cancelled, Band Neutrophils % Cancelled, Lymphocytes % (Manual) Cancelled, Monocytes % (Manual) Cancelled, Eosinophils % (Manual) Cancelled, Basophils % (Manual) Cancelled, Metamyelocytes % Cancelled, Myelocytes % Cancelled, Promyelocytes % Cancelled, Blast Cells % Cancelled, Plasma Cell % (Manual) Cancelled, Other Cells % Cancelled, Nucleated RBC % Cancelled, Nucleated RBCs/100 WBC Cancelled, Differential Comment Cancelled, Diff Path Review Cancelled, Hypersegmented Neuts Cancelled, Atypical Lymphocytes Cancelled, Reactive Lymphocytes Cancelled, Smudge Cells Cancelled, Toxic Granulation Cancelled, Toxic Vacuolation Cancelled, Dohle Bodies Cancelled, Jocelyne Rods Cancelled, Platelet Estimate Cancelled, Plt Morphology Comment Cancelled, RBC Morphology Cancelled, Polychromasia Cancelled, Hypochromasia Cancelled, Poikilocytosis Cancelled, Basophilic Stippling Cancelled, Anisocytosis Cancelled, Microcytosis Cancelled, Macrocytosis Cancelled, Spherocytes Cancelled, Sickle Cells Cancelled, Target Cells Cancelled, Tear Drop Cells Cancelled, Ovalocytes Cancelled, Stomatocytes Cancelled, [place] Bodies Cancelled, Daphnie Cells Cancelled, Bite Cells Cancelled, Crenated Cell Cancelled, Acanthocytes (Spur) Cancelled, Rouleaux Cancelled, Schistocytes Cancelled 07/05/22 11:47: Sodium Cancelled, Potassium Cancelled, Chloride Cancelled, Carbon Dioxide Cancelled, Anion Gap Cancelled, BUN Cancelled, Creatinine Cancelled, Estim Creat Clear Calc Cancelled, Est GFR (MDRD) Af Amer Cancelled, Est GFR (MDRD) Non-Af Cancelled, BUN/Creatinine Ratio Cancelled, Glucose Cancelled, Calcium Cancelled, Total Bilirubin Cancelled, AST Cancelled, ALT Cancelled, Alkaline Phosphatase Cancelled, Troponin I High Sens Cancelled, Total Protein Cancelled, Albumin Cancelled, Globulin Cancelled, Albumin/Globulin Ratio Cancelled 07/05/22 12:10: Sodium 140, Potassium 3.7, Chloride 110 H, Carbon Dioxide 26.0, Anion Gap 4 L, BUN 18, Creatinine 1.36 H, Estim Creat Clear Calc 29.19, Est GFR (MDRD) Af Amer 48 L, Est GFR (MDRD) Non-Af 40 L, BUN/Creatinine Ratio 13.2, Glucose 104, Calcium 8.3 L, Total Bilirubin 0.70, AST 17, ALT 22, Alkaline Phosphatase 72, Troponin I High Sens 5, Total Protein 6.1 L, Albumin 3.3, Globulin 2.8, Albumin/Globulin Ratio 1.2 07/05/22 12:34: Urine Color Straw, Urine Clarity Clear, Urine pH 7.0, Ur Specific [place] 1.010, Urine Protein Negative, Urine Glucose (UA) Normal, Urine Ketones Negative, Urine Occult Blood Negative, Urine Nitrite Negative, Urine Bilirubin Negative, Urine Urobilinogen Normal, Ur Leukocyte Esterase 100 H, Urine RBC 0 SEEN, Urine WBC 0-5 SEEN, Ur Squamous Epith Cells 0-5 SEEN, Urine Bacteria 0 SEEN, Urine Mucus 0 SEEN 07/05/22 12:56: WBC 11.6 H, RBC 4.60, Hgb 13.6, Hct 40.7, MCV 88.5, MCH 29.6, MCHC 33.4, RDW Std Deviation 42.0, RDW Coeff of [place] 13.0, Plt Count 174, MPV 11.7, Immature Gran % (Auto) 0.400, Neut % (Auto) 73.8 H, Lymph % (Auto) 16.0 L, Sawyer % (Auto) 8.6, Eos % (Auto) 0.7, Baso % (Auto) 0.5, Absolute Neuts (auto) 8.5 H, Absolute Lymphs (auto) 1.85, Nucleated RBC % 0 07/05/22 14:40: Troponin I High Sens 5 07/06/22 05:35: Sodium 141, Potassium 3.2 L, Chloride 109 H, Carbon Dioxide 25.0, Anion Gap 7, BUN 16, Creatinine 1.13 H, Estim Creat Clear Calc 35.13, Est GFR (MDRD) Af Amer 59 L, Est GFR (MDRD) Non-Af 49 L, BUN/Creatinine Ratio 14.2, Glucose 98, Calcium 8.6, Phosphorus 3.4, Magnesium 2.3, TSH 1.65 D/C Instructions Discharge Diet: Low fat / Low cholesterol and 2000 mg Sodium Diet Meaningful Use Info Meaningful Use Diagnoses (Choose all that apply): None applicable Discharge Plan Admission Admit Date/Time: 07/05/22 14:33 Primary Reason for Your Visit: Syncope Attending Provider: Radhika Degroot Primary Care Provider: Liz Riddle Consulting Providers: Yasmin Spivey Instructions Additional Instructions / Restrictions: Continue to keep yourself hydrated. Follow-up with your primary care doctor as scheduled Discharge Orders/Prescriptions Prescriptions: Continued zolpidem 5 mg tablet 5 mg PO QHS PRN (Reason: Sleep) aspirin [Adult Low Dose Aspirin] 81 mg tablet,delayed release (DR/EC) 81 mg PO DAILY mometasone 50 mcg/actuation spray,non-aerosol 1 spray INTRANASAL DAILY lorazepam 0.5 mg tablet 0.5 mg PO DAILY PRN (Reason: Anxiety) ondansetron HCl 8 mg tablet 8 mg PO Q8H PRN (Reason: Nausea) Label Comments: TAKE 1 TABLET BY MOUTH EVERY 8 HOURS NEEDED FOR NAUSEA or dizziness. famotidine [Pepcid] 20 mg Tablet 20 mg PO BID clonidine HCl 0.1 mg tablet 0.1 mg PO Q12H Qty: 180 3RF carvedilol 12.5 mg tablet 12.5 mg PO BID Qty: 180 3RF No Action nitrofurantoin monohyd/m-cryst [Macrobid] 100 mg Capsule 100 mg PO BID Rx Instructions: must administer with a meal/food Referrals / Follow Up: Liz Riddle MD [Primary Care Provider] - In 1 Week Disposition Disposition (needs filled in before D/C Order can be placed): Home, Self Care Charges/Coding Visit Charges OBSV E&M: 30395 Observation care discharge
--- NOTE | 2022-07-06 11:57 | CASEMGMT ---
This RN CM to room to discuss d/c plan and pt states no need for any further resources/therapy at discharge. Pt voices no further questions/concerns/needs. SStaten RN CM
== END 2022-07-06 11:18 | disposition home or self-care (01) ==
LOC: ED 14:40 → PCU 15:29
PROVIDERS: Admitting Provider Internal Medicine; Emergency Provider Emergency Medicine; PCP Family Medicine; Visit Provider Internal Medicine
DX: R55 Syncope and collapse (principal); N18.32 Chronic kidney disease, stage 3b; R10.9 Unspecified abdominal pain; Z79.82 Long term (current) use of aspirin; I12.9 Hypertensive chronic kidney disease with stage 1 through stage 4 chronic kidney disease, or unspecified chronic kidney disease; E78.00 Pure hypercholesterolemia, unspecified; R11.0 Nausea; Z79.899 Other long term (current) drug therapy; R23.2 Flushing; N39.0 Urinary tract infection, site not specified; B95.7 Other staphylococcus as the cause of diseases classified elsewhere
CPT/HCPCS: 36415; 80048; 80053; 81001; 83735; 84100; 84443; 84484; 85025; 93005; 93306; 96360; 96361; 96372; 99218; 99251; 99285; J7030; A4216; G0378; G0463

== ENCOUNTER → 2022-07-07 | Outpatient (CLI) | payer MEDICARE, OTHER, SELFPAY ==
[2022-07-07 17:55] LABS: Anion Gap 8 (5-15); BUN 18 mg/dL (7-18); BUN/Creat Ratio 13.4 RATIO (10-20); Calcium,Total 8.7 mg/dL (8.5-10.1); Chloride 109 mmol/L (98-107); Creatinine, Serum 1.34 mg/dL (0.55-1.02); EST Glomerular Filtration Rate 40 mL/min (>60); Est Glom Filt Rate - Afr Amer 49 mL/min (>60); Glucose 124 mg/dL (74-106); Potassium 3.6 mmol/L (3.5-5.1); Sodium Level 138 mmol/L (136-145)
== END | disposition home or self-care (01) ==
LOC: MFPLAB 15:35
PROVIDERS: PCP Family Medicine; Referring Provider Family Medicine; Visit Provider Family Medicine
DX: E87.6 Hypokalemia (principal)
CPT/HCPCS: 36415; 80048

== ENCOUNTER → 2022-07-13 | Outpatient (CLI) | payer MEDICARE, OTHER, SELFPAY | END | disposition home or self-care (01) | PROVIDERS: PCP Family Medicine; Visit Provider Family Medicine | DX: R39.9 Unspecified symptoms and signs involving the genitourinary system (principal) | CPT/HCPCS: 87086; 87088 ==

== ENCOUNTER 2022-08-04 06:46 | Day surgery (SDC) | payer MEDICARE, OTHER, SELFPAY ==
[2022-08-03 07:24] VITALS: BMI 28.3
--- NOTE | 2022-08-04 06:46 | HP_ITS ---
Surgical H&P: Yes Details: This is an 81-year-old white female who presents today for outpatient cardiovascular follow-up of a history of vasovagal mediated syncope, hyperlipidemia, and hypertension. She is accompanied by her daughter. At the present time she states her concerns are her blood pressure. She notes just recently, earlier this month, her blood pressure has been fluctuating up and down. She is not sure why. She has been in and out of the emergency department for it. She states in the emergency department they gave her an anxiolytic which seemed to help bring her blood pressure under better control. She also notes that she has been undergoing evaluation for a syncopal event. She states that she had not been feeling well for a week. She believes she may have been somewhat dehydrated. She was having a pedicure. She experienced pain in her great toe during her pedicure. She states the next thing she remembers is waking up in the EMS squad. She was evaluated in the hospital overnight by the ED group and the hospitalist group. There apparently were no acute cardiac findings. During that time she had a transthoracic echocardiogram performed. The results are noted below. She states she was released home for continued outpatient follow-up. She does not recall with the syncopal event any other symptoms prior to loss of consciousness. She states after she awoke in the EMS squad she just felt tired. Otherwise she states she has been doing well. She has been up and active with no other concerns. Intake Vital Signs 07/05/22 15:34 07/21/22 15:20 07/21/22 15:27 Height 5 ft 5 in 5 ft 5 in 5 ft 5 in Weight: 170 lb 7 oz BMI 28.3 BP 152/84 H Blood Pressure Location Lt brachial Position Sitting Respiration 16 Pulse 68 Pulse Source Auscultation Intake Visit Reasons: syncope Tare Weigher Required: No Accompanied by: Daughter Allergies amlodipine Allergy (Severe, Verified 07/21/22 15:28) Mouth Sores diltiazem [From Cardizem] Allergy (Intermediate, Verified 07/21/22 15:28) Mouth Ulcers atorvastatin Adverse Reaction (Intermediate, Verified 07/21/22 15:28) Nausea losartan [From Cozaar] Adverse Reaction (Intermediate, Verified 07/21/22 15:28) cough nitrofurantoin [From Macrobid] Adverse Reaction (Intermediate, Verified 07/21/22 15:28) Nausea/Vomiting paroxetine [From Paxil] Adverse Reaction (Intermediate, Verified 07/21/22 15:28) Vomiting chlorthalidone Adverse Reaction (Mild, Verified 07/21/22 15:28) Nausea erythromycin base Adverse Reaction (Unknown, Verified 07/21/22 15:28) Unknown Medications aspirin 81 mg tablet,delayed release (Adult Low Dose Aspirin) 81 mg PO DAILY 03/14/18 [History Confirmed 07/21/22] zolpidem 5 mg tablet 5 mg PO QHS PRN Sleep 03/14/18 [History Confirmed 07/21/22] lorazepam 0.5 mg tablet 0.5 mg PO DAILY PRN Anxiety 04/03/19 [History Confirmed 07/21/22] carvedilol 12.5 mg tablet 12.5 mg PO BID #180 tabs 08/12/21 [Rx Confirmed 07/21/22] clonidine HCl 0.1 mg tablet 0.1 mg PO Q12H #180 tabs 08/12/21 [Rx Confirmed 07/21/22] famotidine 20 mg tablet (Pepcid) 20 mg PO DAILY 07/21/22 [History Confirmed 07/21/22] magnesium oxide 400 mg PO .COMPLEX 07/21/22 [History Confirmed 07/21/22] mometasone 50 mcg/actuation nasal spray 1 spray intranasal DAILY PRN allergies 07/21/22 [History Confirmed 07/21/22] PFSH Medical History Altered mental status Essential hypertension Hyperlipidemia Pure hypercholesterolemia Stage 3b chronic kidney disease (CKD) Syncope TIA (transient ischemic attack) Vasovagal syncopes Surgical History History of tonsillectomy Family History Mother No problems noted. Father No problems noted. Sister Diabetes Sister Hyperlipidemia Daughter Hypertension Son Hypertension Social History Smoking Status: Never smoker alcohol intake: never substance use type: does not use caffeine: Yes (1) Type: carbonated beverages and coffee what type of physical activity do you participate in: none ROS Const Const: Negative for fatigue, weakness, body ache, fever(s), headache(s), chills, frequent falls, night sweats, daytime sleepiness, difficulty sleeping, excessive sweating, weight gain, weight loss, increased appetite, poor appetite, anorexia or other Eyes Eyes: Negative for blurry vision or double vision ENT ENT: Positive for dizziness (Rare with position change); Negative for headache(s) or balance problems Cardio Chest Pain: No Palpitations: No Edema: None Muscle aches with walking: None Resp Respiratory: Negative for SOB with activity, SOB at rest, SOB orthopnea\SOB lying down, Cough, Coughing up blood/hemoptysis, chest congestion, pain on inspiration, snoring, stridor, wheezing, crackles, paroxysmal nocturnal dyspnea or other Musc Musc: Negative for muscle aches/ myalgia, muscle weakness, joint pain or balance problems Neuro Neuro: Positive for dizziness (Rare with position change) and syncope (x1 episode getting pedicure...no symptoms prior... woke up in the squad); Negative for lightheadedness, near syncope, orthostatic symptoms, frequent falls, headache(s), weakness, confusion, memory loss, restless legs, blurry vision, double vision, vertigo, seizures, lack of coordination or other Endo Endo: Negative for fatigue or excessive sweating Cardiology Exam Const Appearance: cooperative, healthy appearing, comfortable, no acute distress, well developed and well groomed Nutritional Appearance: well nourished and overweight Orientation: alert, awake and oriented x3 Head Head: normal to inspection, normocephalic and atraumatic Ears: hearing grossly normal bilaterally Nose: external nose normal Face and Sinus: face symmetric Eyes Eyelids: eyelids normal Conjunctivae: conjunctivae normal Pupils: PERRL EOM: EOM intact bilaterally Neck Neck: normal visual inspection and full ROM Carotids: normal carotid upstroke Chest Chest inspection: normal inspection of the chest, symmetric chest movement and normal respiratory effort Auscultation: Bilateral: Clear to Auscultation Cardio Palpation: normal PMI Rate: regular rate Rhythm: regular rhythm Heart sounds: S1 normal and S2 normal GI GI: normal to inspection, soft and bowel sounds present Neuro General: patient alert, patient awake, patient oriented x3 and moves all extremities Skin Skin: no rashes or lesions noted Extremities Pulses: Normal: Right Radial Pulse and Left Radial Pulse Lower Extremity Edema: None: Bilateral Psych Psychological: normal affect Supplemental Info Supplemental Information Echocardiogram from 08/12/2014: Interpretation Summary Left ventricular systolic function is normal. The estimated ejection fraction is 60 %. The left atrium is mildly enlarged. Lipomatous hypertrophy of the atrial septum. There is mild mitral annular calcification. Trivial mitral valve insufficiency. Trivial tricuspid valve insufficiency. Bubble contrast study negative for right to left interatrial shunt. No obvious intracardiac mass lesion / thrombus identified. Consider further evaluation for cardiac source of embolus with DANIEL if clinically indicated. Transthoracic echocardiogram: 07-05-2022 Interpretation Summary The study was technically difficult. ? Left ventricular systolic function is normal. The estimated ejection fraction is 55 %. Septal motion consistent with IVCD. Sigmoid septum. The left atrium is mildly enlarged. Lipomatous hypertrophy of the atrial septum. There is mild to moderate mitral annular calcification. Extension of the mitral annular calcification onto the base of the posterior mitral valve leaflet. Mild (1+) mitral valve insufficiency. Mild tricuspid valve insufficiency. Trivial aortic valve insufficiency. Right ventricular systolic pressure estimated to be 28 mmHg. Diastolic function is indeterminate. Labs: LDL Cholesterol 134 mg/dL (0-130) H HDL Cholesterol 52 mg/dL (40-) Triglycerides 142 mg/dL (-199) VLDL Cholesterol 28 mg/dL (5-40) Diagnostics: Electrocardiogram Echocardiogram Abdomen US Chest X-Ray Pulmonary: No Data to Display Assessment and Plan Assessment and Plan (1) Syncope: Status: Acute Plan: At the present time the etiology of her syncope is uncertain. There are situations present which would lead to her history of a vasovagal mediated event potentially brought out by concerns of recent illness, dehydration, and noxious stimuli. However she feels this event was somewhat different as it did not come with the usual set of symptoms just prior to or following her syncopal event. At the moment she was encouraged to maintain adequate hydration. Her previous studies were reviewed. It was felt reasonable that she be further evaluated for any cardiac dysrhythmias. She states she did attempt an outpatient event monitor since her hospitalization but she could not tolerate it secondary to an adverse reaction to the adhesive on the patch. Thus it would be reasonable to consider her for an implantable loop recorder and attempt to correlate any symptoms with any type of cardiac dysrhythmia or conduction related event. The procedure and risk were discussed with her. She was agreeable to this approach. (2) Vasovagal syncopes: Status: Acute Plan: She does have a history of vasovagal mediated syncope. Thus in the meantime she will continue to maintain adequate fluid hydration. She will report any other concerns. (3) Pure hypercholesterolemia: Status: Chronic Plan: She does have a history of hyperlipidemia. Her previous lipid labs from February 2021 were reviewed. She has been intolerant to lipid-lowering medication such as statins. (4) Essential hypertension: Status: Chronic Plan: She was asked to continue her antihypertensive therapy. She was asked to monitor her blood pressure at home and report her recordings to the office. Depending upon her blood pressure recordings and attempt may have to be made to try and adjust her medications. She has been intolerant to various antihypertensives in the past including hydrochlorothiazide diuretics such as chlorthalidone, calcium channel antagonists (amlodipine and diltiazem), and ARB's (losartan) Orders: Orders Loop Recorder Today R55 - Syncope and collapse Plan Details Additional Comments: Thank you for allowing me to participate in the care of your patient. Please don't hesitate to call if any issues arise. This note was generated using a voice recognition system and there may be incorrect words, spelling or punctuation that were not noted when reviewing the office note prior to saving. Follow Up: 6 Weeks (PFM ) COVID (Procedure Consent) Procedure Criteria Procedure Criteria: Yes Elective The surgeon/proceduralist and patient have discussed in detail the risk of exposure to and/or potential harm posed by the COVID-19 virus with having a surgery/procedure at this time versus the risk of? delaying the surgery/procedure. It is not possible to know either the risk of delaying the surgery or procedure or chance of getting an infection with perfect accuracy, but a joint decision was made between the patient and the surgeon/proceduralist ?to proceed at this time with the scheduled surgery/procedure as indicated on the consent form. Coding Level of Care Code Off vis,est,level 5 Diagnoses Syncope R55 Vasovagal syncopes R55 Pure hypercholesterolemia E78.00 Essential hypertension I10 Coding Level of Care Code Off vis,est,level 5 Diagnoses Syncope R55 Vasovagal syncopes R55 Pure hypercholesterolemia E78.00 Essential hypertension I10
--- NOTE | 2022-08-04 08:05 | CL.IE_ITS ---
Patient: THERESA ROSAS Study Date: 08/04/2022 Performing: Rolando Desir MD : 1940 Age: 81 Gender: female PROCEDURES PERFORMED LP01-([id number])INSERTION OF LOOP RECORDER INDICATIONS Syncope Syncope PROCEDURE DETAILS The patient was brought to the Catheterization Lab in the postabsorptive nonsedated state. Informed consent was obtained prior to the procedure. Local anesthetic was given subcutaneously to the left upper chest area with Lidocaine 2%. Incision was made to the left upper chest. ICM Loop Recorder was inserted. The patient tolerated the procedure well. Estimated Blood Loss: 5 ml's IMPLANTED / EX-PLANTED DEVICES IMPLANTED DEVICE(S): ICM Loop Recorder - Visual Specialist: [employer], Model # [id number] , Serial # [id number] DEVICE PARAMETERS CONCLUSIONS / RECOMMENDATIONS Device Conclusions: Successful implantation of a patient activated loop recorder. Device Recommendations: Follow up with Primary Care Physician PROCEDURE MEDICATIONS Versed 1 mg IV Fentanyl 50 mcg IV Oxygen: 2 L/min via nasal cannula Ancef 2 Gm IV @ 08/04/2022 07:35:40 Signed By Rolando Desir MD On 08/04/2022 08:05:22 Rolando Desir MD
== END 2022-08-04 09:15 | disposition home or self-care (01) ==
LOC: CLSP 06:47
PROVIDERS: PCP Family Medicine; Referring Provider Internal Medicine Cardiovascular Disease; Visit Provider Internal Medicine Cardiovascular Disease
DX: R55 Syncope and collapse (principal); N18.32 Chronic kidney disease, stage 3b; I12.9 Hypertensive chronic kidney disease with stage 1 through stage 4 chronic kidney disease, or unspecified chronic kidney disease; E78.00 Pure hypercholesterolemia, unspecified; Z86.73 Personal history of transient ischemic attack (TIA), and cerebral infarction without residual deficits; Z79.82 Long term (current) use of aspirin; Z79.899 Other long term (current) drug therapy
CPT/HCPCS: 33285; 99152; 99153; J7040

== ENCOUNTER → 2022-08-23 | Outpatient (CLI) | payer MEDICARE, OTHER, SELFPAY ==
--- NOTE | 2022-08-23 11:16 | STRESSREP ---
Stress Test Report Date: 08-23-2022 Procedure: Pharmacologic stress nuclear imaging study Indications: Syncope; ventricular ectopy; accelerated idioventricular rhythm; hyperlipidemia; hypertension Consent: Per the patient Procedure: The patient underwent pharmacologic (Regadenoson 0.4mg ) evaluation with a peak heart rate of 82 beats per minute (58%predicted maximal heart rate) and a peak blood pressure of 158/80 mmHg. The baseline ECG demonstrated sinus rhythm; incomplete left bundle branch block pattern. The peak pharmacologic ECG demonstrated no obvious ECG changes. There were no cardiac dysrhythmias pretest, during pharmacologic infusion, or recovery. There was no complaint of chest discomfort during pharmacologic infusion or recovery. The examination was discontinued secondary to completion of protocol. Impression: 1. Pharmacologic (Regadenoson) evaluation 2. Peak pharmacologic ECG with continued incomplete left bundle branch block pattern with no obvious ECG change. 3. There were no cardiac dysrhythmias pretest, during pharmacologic infusion, or recovery. 4. Nuclear images pending Myocardial perfusion imaging study: Technique: The patient was injected with 11.8 millicuries of technetium 99m Cardiolite and subsequently rest SPECT Cardiolite nuclear imaging was obtained in the horizontal long, vertical long, and short axis views. The patient underwent pharmacologic (Regadenoson) evaluation with a peak heart rate of 82 beats per minute (58% percent predicted maximal heart rate) and a peak blood pressure of 158/80 mmHg. The patient was injected with 34.2 millicuries of technetium 99m Cardiolite and subsequently stress SPECT Cardiolite nuclear imaging was obtained in the horizontal long, vertical long, and short axis views. A gated Cardiolite study at peak stress was obtained. Interpretation: Rest and stress SPECT Cardiolite nuclear imaging status post realignment, normalization, and attenuation correction demonstrate at rest a small area of subtle diminished tracer uptake in the distal anteroseptal segment which appears to improve and/or normalize following stress. There is end systolic thickening and brightening. The gated Cardiolite study demonstrates myocardial thickening and inward wall motion. The reported LVEF is 66%. Impression: 1. Rest and stress SPECT her nuclear imaging demonstrate myocardial perfusion changes at rest which appear to improve/normalize following stress appearing compatible with shifting soft tissue attenuation/artifact with no myocardial perfusion changes considered diagnostic for associated stress-induced myocardial ischemia. 2. The gated Cardiolite study reports an LVEF of 66%. This note was generated with Dragon dictation software. It may contain incorrect words, spelling, and punctuation that were not noted in checking the note before signing.
== END | disposition home or self-care (01) ==
LOC: CVS 06:40
PROVIDERS: PCP Family Medicine; Visit Provider Internal Medicine Cardiovascular Disease
DX: R55 Syncope and collapse (principal); I44.2 Atrioventricular block, complete; R94.31 Abnormal electrocardiogram [ECG] [EKG]
CPT/HCPCS: 78452; 93017; A9500; A4216; J2785

== ENCOUNTER → 2022-09-08 | Outpatient (CLI) | payer MEDICARE, OTHER, SELFPAY | END | disposition home or self-care (01) | PROVIDERS: PCP Family Medicine; Visit Provider Family Medicine | DX: R30.0 Dysuria (principal) | CPT/HCPCS: 87086; 87088 ==

== ENCOUNTER 2023-01-12 13:05 | Emergency (ER) | payer MEDICARE, OTHER, SELFPAY ==
[2023-01-12 13:07] VITALS: BP 119/74; PULSE 61; RESP 16; TEMP 36.5; O2SAT 97; BMI 30.4
--- NOTE | 2023-01-12 13:31 | EKG12_ITS ---
Test Reason : Blood Pressure : / mmHG Vent. Rate : 059 BPM Atrial Rate : 059 BPM P-R Int : 194 ms QRS Dur : 136 ms QT Int : 470 ms P-R-T Axes : 048 -34 078 degrees QTc Int : 465 ms Sinus bradycardia Left axis deviation Left bundle branch block Abnormal ECG Confirmed by LIO MURRY, YARELY ([id number]), editor trade journal ROSI HOANG ([id number]) on 01/16/2023 11:00:54 AM Referred By: ASH Confirmed By:YARELY VACA MD
--- NOTE | 2023-01-12 13:38 | EDS_ITS ---
HPI History of Present Illness Chief Complaint: Syncope Detail of Chief Complaint: Single episode Informant: patient and EMS Onset/Context/Timing Onset: Today and Hours Context: Sudden Onset Timing: Intermittent Quality: Syncope and collapse Location: [facility] Current Severity: Gone Maximum Severity: Severe Worsened by: Patient was sitting for 1 to 1.5 hours Relieved by: Lying down Associated Symptoms Associated Symptoms: Nausea, diaphoresis and heart rate 20 Narrative Narrative: Patient is an 82-year-old woman with history of TIA, syncope with placement of loop recorder by Dr. Desir August 04, 2022. She was at the [facility]. She states she had been sitting for 1 to 1.5 hours prior to passing out. She was diaphoretic. She states she felt warm and nauseous. She was transported to the hospital because of a heart rate of 20 when she passed out. Review of prior records indicates patient has is a vagal syncope. Patient also has history of TIA, hypercholesterolemia and is on carvedilol. She states this past week and her carvedilol dose was increased from 12.5 mg twice daily to 25 mg twice daily. She had no other changes to medication dosage or addition of medications. Presently she has no symptoms. She denies black or maroon-colored stool. Prior similar symptoms: Yes Recent Illness/Hospitalization: No PFSH PFS Medical History Accelerated idioventricular rhythm Altered mental status Essential hypertension Hyperlipidemia Implantable loop recorder present (~08/03/22) Pure hypercholesterolemia Stage 3b chronic kidney disease (CKD) Syncope TIA (transient ischemic attack) Vasovagal syncopes Home Medications aspirin 81 mg tablet,delayed release (Adult Low Dose Aspirin) 81 mg PO DAILY 03/14/18 [History Last Taken 08/04/22] zolpidem 5 mg tablet 5 mg PO QHS PRN Sleep 03/14/18 [History Last Taken 07/04/22] lorazepam 0.5 mg tablet 0.5 mg PO DAILY PRN Anxiety 04/03/19 [History Last Taken 07/04/22] famotidine 20 mg tablet (Pepcid) 20 mg PO DAILY 07/21/22 [History Last Taken 08/04/22] mometasone 50 mcg/actuation nasal spray 1 spray intranasal DAILY PRN allergies 07/21/22 [History Last Taken Unknown] clonidine HCl 0.1 mg tablet 0.1 mg PO Q12H #180 tabs 08/08/22 [Rx Last Taken Unknown] carvedilol 25 mg tablet 12.5 mg PO BID #180 tabs 01/12/23 [Rx Last Taken Unknown] Allergy/AdvReac Type Severity Reaction Status Date / Time amlodipine Allergy Severe Mouth Sores Verified 09/07/22 13:59 diltiazem [From Cardizem] Allergy Intermediate Mouth Verified 09/07/22 13:59 Ulcers atorvastatin AdvReac Intermediate Nausea Verified 09/07/22 13:59 losartan [From Cozaar] AdvReac Intermediate cough Verified 09/07/22 13:59 nitrofurantoin AdvReac Intermediate Nausea/Vomi Verified 09/07/22 13:59 [From Macrobid] ting paroxetine [From Paxil] AdvReac Intermediate Vomiting Verified 09/07/22 13:59 chlorthalidone AdvReac Mild Nausea Verified 09/07/22 13:59 erythromycin base AdvReac Unknown Unknown Verified 09/07/22 13:59 Family History Mother No problems noted. Father No problems noted. Sister Diabetes Sister Hyperlipidemia Daughter Hypertension Son Hypertension Surgical History History of tonsillectomy Social History Smoking Status: Never smoker alcohol intake: never substance use type: does not use caffeine: Yes (1) Type: carbonated beverages and coffee what type of physical activity do you participate in: none ROS ROS ED Constitutional Constitutional ED: Denies chills, fever(s), subjective, sweats or weight loss Eyes Eyes: Reports blurry vision bilateral; Denies change in vision or diplopia ENT ENT ED: Denies ear pain, rhinorrhea or sore throat Cardiovascular Cardiovascular: Denies chest pain, orthopnea, palpitations, paroxysmal nocturnal dyspnea or racing heartbeat Respiratory/Chest Respiratory/Chest: Denies cough, dyspnea, dyspnea on exertion, orthopnea or paroxysmal nocturnal dyspnea Gastrointestinal Gastrointestinal: Reports nausea; Denies abdominal pain, diarrhea, melena or vomiting Genitourinary Genitourinary ED: Denies dysuria, hematuria or urinary frequency Musculoskeletal Musculoskeletal: Denies arthralgias, back pain, myalgias or neck pain Integumentary Denies rash Neurologic Neurologic: Denies headache(s) or paresthesias Endocrine Endocrinology: Denies cold intolerance or heat intolerance Hematologic/Lymphatic Hematologic/Lymphatic: Reports systems reviewed and no addt'l complaints, except as documented EXAM Physical Exam Const Vital Signs: 01/12/23 13:07 01/12/23 13:11 01/12/23 14:02 Temperature 97.7 F L Temperature Source Oral Pulse Rate 61 67 Respiratory Rate 16 18 Respiratory Effort Normal Blood Pressure 119/74 133/69 H Blood Pressure Mean 89 90 Pulse Ox 97 96 Oxygen Delivery Method Room Air Room Air Positive well nourished and well developed Constitutional Narrative: Pleasant elderly woman in no distress. General Appearance ED: well developed and NAD; Negative for cyanotic, diaphoretic or pallor HEENT Reports moist mucous membranes HEENT Narrative: Head is atraumatic normocephalic. Ears are normal. Nares are patent. There is no discharge or epistaxis. Posterior pharynx is normal. Eyes PERRL and EOMs intact bilaterally General Eye ED: Negative for pale conjunctiva or scleral icterus Neck no lymphadenopathy, supple and no JVD Resp normal respiratory effort and clear to auscultation bilaterally Cardio regular rate, regular rhythm, S1 normal heart sound, S2 normal heart sound and no murmurs GI normal to inspection, nondistended, normoactive bowel sounds, non-tender and non-distended; Negative for hepatosplenomegaly or no masses GI Narrative: There is no palpable pulsatile mass. Abdominal bruit. Back/Spine no CVA tenderness Extremity normal to inspection General Extremety ED: Negative for edema or tenderness General Extremity: Negative for edema Neuro oriented x3, CN's II-XII intact bilaterally and no sensory deficits noted Sensorium / Orientation: alert Motor Exam: strength 5/5 throughout Psych mental status grossly normal Skin no rashes or lesions noted, no wounds and No skin turgor normal General Skin Exam: elasticity normal; Negative for jaundice or pallor MDM MDM MDM Narrative Medical decision making narrative: His history and physical exam suggest vasovagal syncope. Will obtain EKG to rule out cardiac ischemia. EKG reveals a sinus bradycardia with no evidence of ischemia. She does have a left axis with left bundle branch block. This is unchanged from prior. MD interval is 194 ms. QRS durations 136 ms. QT duration 470 ms. Rhythm Strip Rhythm Strip: Sinus Rhythm Rate: 60 Ectopy: PVC(s) (Occasional) EKG Initial EKG: Attestation: I personally reviewed and interpreted this EKG as follows: Interpretation: Sinus Bradycardia (Rate is 59. Interpretation documented in the MDM portion of the chart.) Treatment and Re-Evaluation Narrative: Poke with Jose G from cardiology office. Plan is to decrease the carvedilol to 12.5 mg twice daily. They will get report of loop recorder. Patient is to call office for visit to be seen next week Discharge Plan Triage Chief Complaint: Syncope ED Provider: Huang Price Dx/Rx/DC Orders Clinical Impression: Syncope and collapse, Essential hypertension, Implantable loop recorder present, Other terminal gauger (current) drug therapy, Pure hypercholesterolemia Instructions: ED Fainting, Vagal Reaction Prescriptions: No Action zolpidem 5 mg tablet 5 mg PO QHS PRN (Reason: Sleep) aspirin [Adult Low Dose Aspirin] 81 mg tablet,delayed release (DR/EC) 81 mg PO DAILY mometasone 50 mcg/actuation spray,non-aerosol 1 spray INTRANASAL DAILY PRN (Reason: allergies) lorazepam 0.5 mg tablet 0.5 mg PO DAILY PRN (Reason: Anxiety) famotidine [Pepcid] 20 mg tablet 20 mg PO DAILY clonidine HCl 0.1 mg tablet 0.1 mg PO Q12H Qty: 180 3RF carvedilol 25 mg tablet 12.5 mg PO BID Qty: 180 3RF Rx Instructions: must administer with a meal/food Primary Care Provider: Liz Riddle Referrals: Liz Riddle MD [Primary Care Provider] - Shawn Burgos MD [Med Staff - Active Staff] - 3-5 Days Activity Restrictions/Additional Instructions: 1. Decrease carvedilol to 12.5 mg twice a day 2. Contact Dr. Burgos's office for appointment to be seen next week Disposition Disposition: Home, Self Care
[2023-01-12 14:02] VITALS: BP 133/69; PULSE 67; RESP 18; O2SAT 96
== END 2023-01-12 14:46 | disposition home or self-care (01) ==
PROVIDERS: Emergency Provider Emergency Medicine; PCP Family Medicine; Visit Provider Emergency Medicine
DX: R55 Syncope and collapse (principal); N18.32 Chronic kidney disease, stage 3b; I12.9 Hypertensive chronic kidney disease with stage 1 through stage 4 chronic kidney disease, or unspecified chronic kidney disease; E78.00 Pure hypercholesterolemia, unspecified; Z79.82 Long term (current) use of aspirin; Z79.899 Other long term (current) drug therapy; Z86.73 Personal history of transient ischemic attack (TIA), and cerebral infarction without residual deficits
CPT/HCPCS: 93005; 99285

== ENCOUNTER → 2023-02-13 | Outpatient (CLI) | payer MEDICARE, OTHER, SELFPAY ==
[2023-02-13 18:28] LABS: Anion Gap 7 (5-15); BUN 16 mg/dL (7-18); BUN/Creat Ratio 11.8 RATIO (10-20); Calcium,Total 8.5 mg/dL (8.5-10.1); Chloride 110 mmol/L (98-107); Cholesterol 180 mg/dL (200); Creatinine, Serum 1.36 mg/dL (0.55-1.02); EST Glomerular Filtration Rate 40 mL/min (>60); Est Glom Filt Rate - Afr Amer 48 mL/min (>60); Glucose 118 mg/dL (74-106); High Density Lipoprotein 43 mg/dL; Potassium 3.5 mmol/L (3.5-5.1); Sodium Level 140 mmol/L (136-145); Triglycerides 180 mg/dL; Very Low Density Lipoprotein 36 mg/dL (5-40)
== END | disposition home or self-care (01) ==
LOC: MFPLAB 15:49
PROVIDERS: PCP Family Medicine; Visit Provider Family Medicine
DX: I10 Essential (primary) hypertension (principal)
CPT/HCPCS: 36415; 80048; 80061

== ENCOUNTER → 2023-02-14 | Outpatient (CLI) | payer MEDICARE, OTHER, SELFPAY ==
[2023-02-14 16:02] LABS: Microalbumin,Random Urine 15.2 mg/L (NO RANGE EST.); Microalbumin:Creatinine Ratio 15.3 mg/g CRE (<30 mg/g CRE)
== END | disposition home or self-care (01) ==
LOC: LABSPEC 11:53
PROVIDERS: PCP Family Medicine; Visit Provider Family Medicine
DX: I10 Essential (primary) hypertension (principal)
CPT/HCPCS: 82043; 82570

== ENCOUNTER → 2023-02-21 | Outpatient (CLI) | payer MEDICARE, OTHER, SELFPAY ==
--- NOTE | 2023-02-21 13:40 | BI_ITS ---
MAMMOGRAPHY - BILATERAL SCREENING REASON FOR EXAM: Female, 82 years old. Routine annual screening examination. PERTINENT HISTORY: Sister with breast cancer. Aunt with breast cancer. TECHNIQUE: Digital bilateral breast miko (3D mammographic acquisition) in the CC and MLO projections. 2-D mediolateral oblique (MLO) and craniocaudad (CC) views of both breasts were obtained. CAD: Full Field Digital Mammography with Computer Added Detection was performed. COMPARISON: Comparison is made with prior examination dated August 19, 2021 and May 29, 2018. FINDINGS: Breast Composition: The breasts are heterogeneously dense, which may obscure small masses. There are no dominant masses or suspicious calcifications. A loop recording device is seen in the deep central medial aspect of the left breast. No other significant abnormalities are identified. There has been no significant change since the prior study. BI/SCRN MAMM (CAD)W/MIKO BILAT IMPRESSION: Stable bilateral screening mammogram. Yearly follow-up mammogram recommended. (A) ASSESSMENT CATEGORY: BIRADS Category 2: Benign. A letter regarding these results will be sent to the patient by the facility within 30 days. Approximately 10% of breast cancers are not detected by mammography. A normal mammogram should not delay biopsy of a clinically suspicious abnormality. [id number] Electronically Signed: Nash Garcia MD at 15:36 EDT ,
== END | disposition home or self-care (01) ==
LOC: OPBI 13:39
PROVIDERS: PCP Family Medicine; Visit Provider Family Medicine
DX: Z00.00 Encounter for general adult medical examination without abnormal findings (principal); Z12.31 Encounter for screening mammogram for malignant neoplasm of breast; Z80.3 Family history of malignant neoplasm of breast
CPT/HCPCS: 77063; 77067

== ENCOUNTER → 2023-03-30 | Outpatient (CLI) | payer MEDICARE, OTHER, SELFPAY ==
--- NOTE | 2023-03-30 10:55 | RAD_ITS ---
EXAM: XR CHEST, 2 VIEWS CLINICAL INDICATION: SOB, dry cough TECHNIQUE: Frontal and lateral views of the chest. COMPARISON: 10/04/2020 FINDINGS: LUNGS AND PLEURAL SPACES: Unremarkable. No consolidation or edema. No pneumothorax. No effusion. HEART: Unremarkable. Cardiac silhouette not enlarged. MEDIASTINUM: Central airways and mediastinal contour are unremarkable. BONES/JOINTS: Unremarkable. SOFT TISSUES: Unremarkable. RAD/Chest PA and Lateral IMPRESSION: No radiographic evidence of acute cardiopulmonary disease. Electronically Signed: Preston Rodriguez MD at 20:10 EDT ,
[2023-03-30 10:56] LABS: Hemoglobin 13.6 g/dL (12.0-15.0); Mean Corp Hgb Conc 32.4 g/dL (32-36); Mean Corpuscular Hgb 29.2 pg (27.0-32.0); Mean Corpuscular Volume 90.3 fL (81-99); Mean Platelet Vol. 10.6 fl (6.2-12.0); Platelet Count 191 K/mm3 (150-450); RBC Distribution Width CV 13.1 % (11.6-14.6); RBC Distribution Width SD 42.8 fl (35.1-43.9); Red Blood Count 4.65 M/mm3 (4.2-5.4); White Blood Count 7.4 K/mm3 (4.4-11.0)
[2023-03-30 11:25] LABS: BNP,B-Type NATRIURETIC PEPTIDE 96.6 pg/mL (0-100)
[2023-03-30 11:26] LABS: Anion Gap 5 (5-15); BUN 20 mg/dL (7-18); BUN/Creat Ratio 14.5 RATIO (10-20); Calcium,Total 8.9 mg/dL (8.5-10.1); Chloride 111 mmol/L (98-107); Creatinine, Serum 1.38 mg/dL (0.55-1.02); EST Glomerular Filtration Rate 39 mL/min (>60); Est Glom Filt Rate - Afr Amer 47 mL/min (>60); Glucose 115 mg/dL (74-106); Sodium Level 143 mmol/L (136-145)
== END | disposition home or self-care (01) ==
PROVIDERS: PCP Family Medicine; Referring Provider Physician Assistant Medical; Visit Provider Physician Assistant Medical
DX: R06.09 Other forms of dyspnea (principal); I44.2 Atrioventricular block, complete; Z95.818 Presence of other cardiac implants and grafts; E78.00 Pure hypercholesterolemia, unspecified; I10 Essential (primary) hypertension; Z79.899 Other long term (current) drug therapy; R94.31 Abnormal electrocardiogram [ECG] [EKG]; R55 Syncope and collapse
CPT/HCPCS: 36415; 71046; 80048; 83880; 85027

== ENCOUNTER → 2023-06-09 | Outpatient (CLI) | payer MEDICARE, OTHER, SELFPAY ==
[2023-06-09 12:30] LABS: Absolute Lymphocyte Count 2.33 X10^3/uL (0.83-4.51); Absolute Neutrophil Count 5.1 X10^3/uL (2.0-7.7); Basophil# 0.06 X10^3/uL; Basophil% 0.7 % (0-1); Eosinophil# 0.23 X10^3/uL; Eosinophils% 2.7 % (0-5); Hematocrit 41.5 % (37-47); Hemoglobin 13.5 g/dL (12.0-15.0); Lymphocyte # 2.33 X10^3/ul (0.83-4.51); Lymphocyte % 26.9 % (19-41); Mean Corp Hgb Conc 32.5 g/dL (32-36); Mean Corpuscular Hgb 29.7 pg (27.0-32.0); Mean Corpuscular Volume 91.2 fL (81-99); Monocyte# 0.88 X10^3/uL; Monocyte% 10.2 % (0-10); NRBC Flagged by Analyzer 0 % (0-5); Neutrophil # 5.13 X10^3/uL (2.7-7.7); Neutrophil % 59.2 % (47-70); Platelet Count 205 K/mm3 (150-450); RBC Distribution Width CV 13.4 % (11.6-14.6); RBC Distribution Width SD 45.1 fl (35.1-43.9); Red Blood Count 4.55 M/mm3 (4.2-5.4); White Blood Count 8.7 K/mm3 (4.4-11.0)
== END | disposition home or self-care (01) ==
LOC: MFPLAB 09:47
PROVIDERS: PCP Family Medicine; Visit Provider Family Medicine
DX: K92.1 Melena (principal)
CPT/HCPCS: 36415; 85025

== ENCOUNTER → 2024-01-16 | Outpatient (CLI) | payer MEDICARE, OTHER, SELFPAY ==
[2024-01-16 13:54] LABS: Anion Gap 4 (5-15); BUN 16 mg/dL (7-18); BUN/Creat Ratio 12.2 RATIO (10-20); Calcium,Total 8.9 mg/dL (8.5-10.1); Chloride 113 mmol/L (98-107); Creatinine, Serum 1.31 mg/dL (0.55-1.02); EST Glomerular Filtration Rate 41 mL/min (>60); Est Glom Filt Rate - Afr Amer 50 mL/min (>60); Glucose 120 mg/dL (74-106); Potassium 3.9 mmol/L (3.5-5.1); Sodium Level 143 mmol/L (136-145)
== END | disposition home or self-care (01) ==
LOC: LAB 12:47
PROVIDERS: PCP Family Medicine; Referring Provider Nurse Practitioner Family; Visit Provider Nurse Practitioner Family
DX: I10 Essential (primary) hypertension (principal); Z79.899 Other long term (current) drug therapy
CPT/HCPCS: 36415; 80048

== ENCOUNTER → 2024-04-11 | Outpatient (CLI) | payer MEDICARE, OTHER, SELFPAY ==
--- NOTE | 2024-04-11 13:57 | BI_ITS ---
MAMMOGRAPHY - BILATERAL SCREENING 3-D TOMOSYNTHESIS REASON FOR EXAM: Female, 83 years old. screening PERTINENT HISTORY: No significant family history. TECHNIQUE: 2-D mammograms and 3-D Tomosynthesis of the breast (s) were performed. CAD was performed. COMPARISON: 02/21/2023 FINDINGS: The breast composition is heterogeneously dense that can obscure small breast masses. Scattered benign calcifications are seen. No dense spiculated masses or suspicious microcalcifications are identified. No architectural distortion is identified. There is no skin thickening or retraction. There has been no significant change since the prior study. BI/SCRN MAMM (CAD)W/MIKO BILAT IMPRESSION: No mammographic signs of malignancy. Routine yearly mammograms recommended. ASSESSMENT CATEGORY: BIRADS Category 1: Negative. A letter regarding these results will be sent to the patient by the facility within 30 days. FOLLOW UP RECOMMENDATION: Yearly follow up mammogram recommended. (A) Approximately 10% of breast cancers are not detected by mammography. A normal mammogram should not delay biopsy of a clinically suspicious abnormality. Electronically Signed: Gerard Villalobos MD at 17:35 EDT ,
--- NOTE | 2024-04-11 14:01 | BD_ITS ---
STUDY: DUAL ENERGY X-RAY ABSORPTIOMETRY / DXA REASON FOR EXAM: Female, 83 years old. V76.12ScreeningBONE DENSITY REASON FOR EXAM TECHNIQUE: Bone Mineral Density (BMD) measurements of lumbar spine and bilateral hips were obtained. COMPARISON: Comparison is made with prior study dated August 19, 2021. FINDINGS: Lumbar Spine (L1-L4): g/cm2 (0.768) / T-score (-2.5) / Z-score (0.3) Findings are suggestive of osteoporosis with a high fracture risk. Left Femur Total: g/cm2 (0.759) / T-score (-1.5) / Z-score (0.7) Left Femoral Neck: g/cm2 (0.642) / T-score (-1.9) / Z-score (0.6) Right Femur Total: g/cm2 (0.780) / T-score (-1.3) / Z-score (0.9) Right Femoral Neck: g/cm2 (0.703) / T-score (-1.3) / Z-score (1.1) The T-Scores on the most recent prior examination were: Lumbar Spine (L1-L4): There has been worsening of bone density since the previous examination. Left Femur Total: which represents an improvement of 1.6%. Right Femur Total: which represents a worsening of 0.4%. BD/Dexa Bone Density Study IMPRESSION: The patient is considered osteoporotic as outlined below according to World Aly Organization (WHO) criteria with a high fracture risk. There has been worsening of bone density since the previous examination. Reference Information: The T-score is the number of standard deviations above or below the standard which is normal for young adults at their peak bone mineral density. The World Health Organization (WHO) interprets the T-scores as follows: Above -1 Normal bone density Between -1 and -2.5 Osteopenia Equal to / or below -2.5 Osteoporosis As a practical clinical guideline, osteopenia may be graded as follows: Mild -1 through -1.5 Moderate -1.6 through -2.0 Severe -2.1 through -2.4 The Z-score is the number of standard deviations above or below age-matched controls. A Z-score of less than -1.5 would be considered abnormal. References: 1. NIH Osteoporosis and Related Bone Diseases www osteo.org 2. International Society for Clinical Densitometry www iscd.org 3. National Osteoporosis Foundation www nof.org Electronically Signed: aNsh Garcia MD at 13:36 EDT ,
== END | disposition home or self-care (01) ==
LOC: OPBD 13:57
PROVIDERS: PCP Family Medicine; Referring Provider Family Medicine; Visit Provider Family Medicine
DX: Z12.31 Encounter for screening mammogram for malignant neoplasm of breast (principal); N95.9 Unspecified menopausal and perimenopausal disorder
CPT/HCPCS: 77063; 77067; 77080

== ENCOUNTER → 2024-09-02 | Outpatient (CLI) | payer MEDICARE, OTHER, SELFPAY ==
[2024-09-02 15:27] LABS: Absolute Lymphocyte Count 2.53 X10^3/uL (0.83-4.51); Basophil# 0.09 X10^3/uL; Eosinophil# 0.11 X10^3/uL; Eosinophils% 1.3 % (0-5); Hematocrit 40.1 % (37-47); Lymphocyte # 2.53 X10^3/ul (0.83-4.51); Lymphocyte % 29.3 % (19-41); Mean Corp Hgb Conc 32.4 g/dL (32-36); Mean Corpuscular Hgb 28.9 pg (27.0-32.0); Mean Corpuscular Volume 89.1 fL (81-99); Mean Platelet Vol. 12.2 fl (6.2-12.0); Monocyte# 0.87 X10^3/uL; Monocyte% 10.1 % (0-10); NRBC Flagged by Analyzer 0 % (0-5); Platelet Count 207 K/mm3 (150-450); RBC Distribution Width CV 12.9 % (11.6-14.6); RBC Distribution Width SD 42.4 fl (35.1-43.9); White Blood Count 8.6 K/mm3 (4.4-11.0)
[2024-09-02 16:15] LABS: ALB/GLOB Ratio 1.2 RATIO (0.9-2.4); AST(SGOT) 21 U/L (15-37); Alanine Aminotransfer ALT/SGPT 27 U/L (13-56); Albumin, Serum 3.5 g/dL (3.2-5.0); Alkaline Phosphatase 75 U/L (45-117); Anion Gap 9 (5-15); BUN 19 mg/dL (7-18); BUN/Creat Ratio 11.9 RATIO (10-20); Calcium,Total 8.9 mg/dL (8.5-10.1); Chloride 108 mmol/L (98-107); EST Glomerular Filtration Rate 33 mL/min (>60); Est Glom Filt Rate - Afr Amer 40 mL/min (>60); Glucose 103 mg/dL (74-106); Protein, Total 6.5 g/dL (6.4-8.2); Sodium Level 138 mmol/L (136-145)
[2024-09-02 17:37] LABS: Hemoglobin A1c 5.8 % (3.8-5.6)
== END | disposition home or self-care (01) ==
LOC: MFPLAB 13:40
PROVIDERS: PCP Family Medicine; Visit Provider Family Medicine
DX: R42 Dizziness and giddiness (principal)
CPT/HCPCS: 36415; 80053; 83036; 84443; 85025

== ENCOUNTER 2024-09-25 16:30 | Outpatient (RCR) | payer MEDICARE, OTHER, SELFPAY ==
--- NOTE | 2024-09-19 17:38 | HP.PTEVAL ---
Patient's Visit Information Visit Information Visit Information: THERESA ROSAS is a 83 year old F referred to Physical Therapy by Dr. Jose G Ibarra MD with a diagnosis of BPPV. Date of Evaluation: 09/19/24 Physical Therapist: Ras Sanabria, DPT, OCS, CSCS Visit Plan Frequency: 1-2x /Week Duration: 2-4 Weeks Plan: 1-2x/week if needed x 2-4 for L positional treatments and ex. oculomtoor as needed. HEP today was limtied head movmement tonight and educated on BPPV Subjective Subjective: Head swims, Getting up out of bed or chair. Taking pills and not as bad. meclizine helped. First time was 10/3 adn got out of bed and disoriented and staggered. That lasted a few seconds adn then she could walk. Hd appointment with Janessa and told her. Thought it would go away but it worsened. Was sick by the weekend. Could not sleep b/c disoriented intermittenlty, but got up and got disoriented with walking. Appetite stayed good. Saw another doctor who said she hadd vertigo. This week has been dizzy and disoriented with rolling to left side. Also standing up from sitting, lying down in bed, sometimes with bending over. Feels pretty normal in between these episodes. Objective Objective: Walks into PT I , transfers chair and bed I. Steps reciprocal without railing up and one railing descending. cervical aROM without hesitation and full without pain. UE AROM wFL. - R HD. + L HD for up torsional nystagmus of 10 seconds. Treated with L modified wade and instruct. 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 For Medicare and Medicare HMO plans, please review the plan of care and approve it. It will need to be FAXED BACK to us at [phone] for Medicare purposes. For Medicare only, by signing this I certify the plan of care. Please let me know if there are questions or concerns regarding this plan of care. Physician Signature: Date:
--- NOTE | 2024-12-02 09:29 | HP.PT.NRP ---
Patient Information Patient Information: THERESA ROSAS was seen in my office for initial evaluation on 09/19/24. The following Plan of Care was established for this patient: POC Established Initial Frequency: 1-2x /Week Initial Duration: 2-4 Weeks Anticipated Interventions Patient/Client Instruction: Educate patient on: Condition and Plan of Care For the Purpose of:: To increase tolerance to activity/condition/position For the Purpose of:: To increase tolerance to activity/condition/position Last Seen Last Seen: This patient was last seen in our office 09/25/24. Pertinent comments regarding their Physical therapy will appear below: Pt seen 2 visits of POC for positional vertigo and was 95% better. She was to f/u one more time to ensure progress but did not schedule or attend\. At this point, it has been over two months and I will discontinue due to nonattendance. At this point I will be discontinuing this patient from physical therapy. I would be happy to see this patient again in the future if found appropriate by the physician. Thank you! Ras Sanabria, DPT, OCS, CSCS Balance/Gait/Functional tests Balance/Special Test Scores Functional Gait Assessment Score: 27 % Disability: 10.0000 Dizziness Score: 22
== END 2024-09-25 19:00 | disposition home or self-care (01) ==
LOC: PT 16:30
PROVIDERS: PCP Family Medicine; Referring Provider Family Medicine; Visit Provider Family Medicine
DX: H81.10 Benign paroxysmal vertigo, unspecified ear (principal)
CPT/HCPCS: 97161; 97530

== ENCOUNTER → 2024-10-29 | Outpatient (CLI) | payer MEDICARE, OTHER, SELFPAY ==
[2024-10-29 15:30] LABS: Absolute Lymphocyte Count 2.52 X10^3/uL (0.83-4.51); Absolute Neutrophil Count 4.5 X10^3/uL (2.0-7.7); Basophil% 1.2 % (0-1); Eosinophil# 0.23 X10^3/uL; Eosinophils% 2.8 % (0-5); Hematocrit 39.7 % (37-47); Hemoglobin 12.6 g/dL (12.0-15.0); Lymphocyte # 2.52 X10^3/ul (0.83-4.51); Lymphocyte % 31.1 % (19-41); Mean Corp Hgb Conc 31.7 g/dL (32-36); Mean Corpuscular Hgb 28.7 pg (27.0-32.0); Mean Corpuscular Volume 90.4 fL (81-99); Mean Platelet Vol. 11.9 fl (6.2-12.0); Monocyte# 0.73 X10^3/uL; NRBC Flagged by Analyzer 0 % (0-5); Neutrophil # 4.48 X10^3/uL (2.7-7.7); Neutrophil % 55.5 % (47-70); Platelet Count 229 K/mm3 (150-450); RBC Distribution Width CV 12.7 % (11.6-14.6); RBC Distribution Width SD 41.8 fl (35.1-43.9); Red Blood Count 4.39 M/mm3 (4.2-5.4); White Blood Count 8.1 K/mm3 (4.4-11.0)
[2024-10-29 16:00] LABS: ALB/GLOB Ratio 1.2 RATIO (0.9-2.4); AST(SGOT) 26 U/L (15-37); Alanine Aminotransfer ALT/SGPT 33 U/L (13-56); Albumin, Serum 3.6 g/dL (3.2-5.0); Alkaline Phosphatase 75 U/L (45-117); Anion Gap 6 (5-15); BUN 15 mg/dL (7-18); BUN/Creat Ratio 9.9 RATIO (10-20); Chloride 112 mmol/L (98-107); Creatinine, Serum 1.51 mg/dL (0.55-1.02); EST Glomerular Filtration Rate 35 mL/min (>60); Est Glom Filt Rate - Afr Amer 42 mL/min (>60); Glucose 120 mg/dL (74-106); Potassium 4.1 mmol/L (3.5-5.1); Protein, Total 6.6 g/dL (6.4-8.2); Sodium Level 141 mmol/L (136-145)
[2024-10-29 17:57] LABS: Hemoglobin A1c 5.5 % (3.8-5.6)
== END | disposition home or self-care (01) ==
LOC: MFPLAB 13:34
PROVIDERS: PCP Family Medicine; Visit Provider Family Medicine
DX: R42 Dizziness and giddiness (principal); E03.9 Hypothyroidism, unspecified; K62.5 Hemorrhage of anus and rectum
CPT/HCPCS: 36415; 80053; 83036; 84443; 85025

== ENCOUNTER → 2025-04-10 | Outpatient (CLI) | payer MEDICARE, OTHER, SELFPAY ==
[2025-04-10 12:56] LABS: Absolute Lymphocyte Count 2.43 X10^3/uL (0.83-4.51); Absolute Neutrophil Count 5.3 X10^3/uL (2.0-7.7); Basophil# 0.11 X10^3/uL; Basophil% 1.3 % (0-1); Eosinophil# 0.19 X10^3/uL; Eosinophils% 2.2 % (0-5); Hematocrit 40.6 % (37-47); Hemoglobin 13.2 g/dL (12.0-15.0); Lymphocyte # 2.43 X10^3/ul (0.83-4.51); Lymphocyte % 27.6 % (19-41); Mean Corp Hgb Conc 32.5 g/dL (32-36); Mean Corpuscular Hgb 29.5 pg (27.0-32.0); Mean Corpuscular Volume 90.6 fL (81-99); Mean Platelet Vol. 11.6 fl (6.2-12.0); Monocyte# 0.71 X10^3/uL; Monocyte% 8.1 % (0-10); NRBC Flagged by Analyzer 0 % (0-5); Neutrophil # 5.32 X10^3/uL (2.7-7.7); Neutrophil % 60.5 % (47-70); Platelet Count 214 K/mm3 (150-450); RBC Distribution Width CV 12.8 % (11.6-14.6); RBC Distribution Width SD 42.6 fl (35.1-43.9); Red Blood Count 4.48 M/mm3 (4.2-5.4); White Blood Count 8.8 K/mm3 (4.4-11.0)
[2025-04-10 13:53] LABS: Hepatitis C Antibody Nonreactive (Nonreactive); Vitamin D,25 Hydroxy 36.5 ng/mL (30-100)
[2025-04-10 14:08] LABS: ALB/GLOB Ratio 1.7 RATIO (0.9-2.4); AST(SGOT) 36 U/L (<=31); Alanine Aminotransfer ALT/SGPT 28 U/L (<=34); Albumin, Serum 4.1 g/dL (3.4-4.8); Alkaline Phosphatase 82 U/L (35-104); Anion Gap 11 (5-15); BUN 16 mg/dL (4-19); BUN/Creat Ratio 11.4 RATIO (10-20); Calcium,Total 8.2 mg/dL (7.6-11.0); Carbon Dioxide 23.4 mmol/L (21.0-32.0); Chloride 108 mmol/L (98-108); Creatinine, Serum 1.39 mg/dL (0.70-1.20); EST Glomerular Filtration Rate 37 (>60); Globulin 2.4 g/dL (2.2-4.2); Glucose 57 mg/dL (70-99); Potassium 4.5 mmol/L (3.3-5.1); Protein, Total 6.5 g/dL (5.9-8.4); Sodium Level 143 mmol/L (133-145); Total Bilirubin 0.59 mg/dL (0.00-1.30)
== END | disposition home or self-care (01) ==
LOC: LAB 12:21
PROVIDERS: Referring Provider Family Medicine Geriatric Medicine; Visit Provider Family Medicine Geriatric Medicine
DX: I10 Essential (primary) hypertension (principal); I63.9 Cerebral infarction, unspecified; E55.9 Vitamin D deficiency, unspecified
CPT/HCPCS: 36415; 80053; 82306; 84443; 85025; 86803

== ENCOUNTER → 2025-04-15 | Outpatient (CLI) | payer MEDICARE, OTHER, SELFPAY ==
--- NOTE | 2025-04-15 13:25 | BI_ITS ---
EXAM: SCRN MAMM (CAD)W/MIKO BILAT DATE: 04/15/2025 CLINICAL HISTORY: F, Age 84 y/o , BREAST CANCER Sister with breast cancer. Aunt with breast cancer. BREAST CANCER RISK ASSESSMENT: Not assessed. TECHNIQUE: Bilateral screening digital breast tomosynthesis with 2D and 3D images. Computer aided detection. COMPARISON: Prior exam(s) dated April 11, 2024.. FINDINGS: TISSUE DENSITY: The breast tissue is heterogenously dense, which may obscure small masses. Bilateral Breast Mammographic Findings: No significant masses, calcifications or other abnormalities are identified. Once again, a loop recording device is seen in the upper medial aspect of the left breast. BI/SCRN MAMM (CAD)W/MIKO BILAT IMPRESSION: OVERALL FINAL ASSESSMENT: BIRADS 2 BENIGN FINDING RECOMMENDATION: Routine annual follow-up in 1 Year A letter with findings and recommendations will be mailed to the patient. Reading Location: [place] [id number]
== END | disposition home or self-care (01) ==
LOC: OPBI 13:24
DX: Z12.31 Encounter for screening mammogram for malignant neoplasm of breast (principal)
CPT/HCPCS: 77063; 77067

== ENCOUNTER → 2025-06-23 | Outpatient (CLI) | payer MEDICARE, OTHER, SELFPAY ==
[2025-06-23 15:30] LABS: Anion Gap 12 (5-15); BUN 18 mg/dL (4-19); BUN/Creat Ratio 12.1 RATIO (10-20); Calcium,Total 9.1 mg/dL (7.6-11.0); Carbon Dioxide 24.6 mmol/L (21.0-32.0); Chloride 106 mmol/L (98-108); Glucose 111 mg/dL (70-99); Potassium 4.3 mmol/L (3.3-5.1)
== END | disposition home or self-care (01) ==
LOC: LAB 13:22
PROVIDERS: Referring Provider Nurse Practitioner Family; Visit Provider Nurse Practitioner Family
DX: Z79.899 Other long term (current) drug therapy (principal); I10 Essential (primary) hypertension
CPT/HCPCS: 36415; 80048

== ENCOUNTER 2025-06-24 14:29 | Emergency (ER) | payer MEDICARE, OTHER, SELFPAY ==
[2025-06-24] VITALS (10 sets, daily range): BP systolic 107–155; BP diastolic 54–78; PULSE 57–78; RESP 14–20; TEMP 36.5; O2SAT 88–98; BMI 30.5
--- NOTE | 2025-06-24 14:50 | CT_ITS ---
PROCEDURE: BRAIN/HEAD WITHOUT CONTRAST 06/24/2025 REASON FOR EXAM: MINIMALLY RESPONSIVE EPISODE TECHNIQUE: BRAIN/HEAD WITHOUT CONTRAST Coronal and Sagittal reconstruction series were provided. One or more dose reduction techniques were used (e.g., Automated exposure control, adjustment of the mA and/or kV according to patient size, use of iterative reconstruction technique. RADIATION DOSE SUMMARY: CTDlvol: 44.99 mGy DLP: 812.98 mGycm COMPARISON: None. FINDINGS: Brain: Extensive low density in the deep cerebral white matter most likely represents advanced chronic small vessel ischemic disease. No acute intracranial hemorrhage. No mass-effect or midline shift. CSF Spaces: Advanced generalized cerebral atrophy Sinuses/Mastoids: Clear at visualized levels Bones: No acute bony abnormalities. CT/Brain/Head without Contrast IMPRESSION: No acute intracranial abnormalities. Reading Location: [facility]
--- NOTE | 2025-06-24 14:51 | EKG12_ITS ---
Test Reason : ALT LOC Blood Pressure : */* mmHG Vent. Rate : 62 BPM Atrial Rate : 62 BPM P-R Int : 184 ms QRS Dur : 140 ms QT Int : 488 ms P-R-T Axes : 24 -30 123 degrees QTcB Int : 495 ms Normal sinus rhythm Left axis deviation Left bundle branch block Abnormal ECG Confirmed by YULIET MURRY, MAREK ([id number]), news editor ROSI HOANG ([id number]) on 06/25/2025 8:33:41 AM Referred By: CASSY/SONAL Confirmed By: MAREK HORVATH MD
[2025-06-24] MEDS: 0.9% Normal Saline (1000mL) 1,000 ML 1000 ML IV (14:54)
[2025-06-24 15:04] LABS: Hematocrit 39.9 % (37-47); Hemoglobin 13.1 g/dL (12.0-15.0); Immature Granulocytes Count 0.040 X10^3/uL (0.0-0.0); Mean Corp Hgb Conc 32.8 g/dL (32-36); Mean Corpuscular Volume 90.1 fL (81-99); Mean Platelet Vol. 12.0 fl (6.2-12.0); NRBC Flagged by Analyzer 0 % (0-5); Platelet Count 224 K/mm3 (150-450); RBC Distribution Width CV 13.1 % (11.6-14.6); RBC Distribution Width SD 43.0 fl (35.1-43.9); Red Blood Count 4.43 M/mm3 (4.2-5.4); White Blood Count 9.5 K/mm3 (4.4-11.0)
--- NOTE | 2025-06-24 15:15 | RAD_ITS ---
PROCEDURE: CHEST PA AND LATERAL 06/24/2025 REASON FOR EXAM: MINIMALLY RESPONSIVE EPISODE TECHNIQUE: CHEST PA AND LATERAL COMPARISON: Prior study dated March 31, 2023. FINDINGS: Hardware: EKG electrodes are seen. Heart: The heart size is normal.. A loop recording device is seen overlying the left cardiac border. Tortuosity of the descending thoracic aorta. Mediastinum: The mediastinal contour is unremarkable. Lungs: The lungs are clear. Bones: Demineralization of the thoracic vertebrae. RAD/Chest PA and Lateral IMPRESSION: No acute abnormality is seen. Reading Location: [id number]
--- NOTE | 2025-06-24 15:16 | EX.ED.DYSGE1 ---
HPI History of Present Illness Chief Complaint: Unresponsive Narrative Narrative: Chief complaint and HPI: Minimally responsive episode. 84-year-old female with past medical history of HTN, HLD, CKD presents for evaluation of minimal responsive episode. Patient had a Entropion repair right lower eyelid today by Dr. Crump. She received 1.5 mg of Versed IV and 75 mcg of fentanyl. At the time of discharge patient was responsive. She was picked up by her daughter in which they went out to lunch. While her daughter ran inside to take a piece of pie to her own daughter, she came out into the car and found the patient snoring. She states that she tried to awaken the patient but could not. She states she then woke up and became nauseous in which she vomited. Daughter states she was minimally responsive so brought her to the emergency department. On arrival here to the emergency department, patient is fatigued however she is responsive. She states she is tired. She denies any complaints other than nausea. She denies any fever, chills, shortness of breath, chest pain, abdominal pain, eye pain, headache, weakness, difficulty speaking, numbness/tingling. Daughter does state that the patient was not supposed to take her sleeping pills last night in which she did take them. Review of systems: See HPI Medications: As listed on the chart Allergies: As listed on the chart PFSH: Per chart Vital signs: As listed on the chart. Reviewed. Physical exam: Gen: Fatigued but oriented O x3 Head: Normocephalic, atraumatic Eyes: Wearing sunglasses, no sclera icterus, conjunctiva clear, PERRL-but pinpoint bilaterally, EOMI, Entropion repair of the right lower eyelid with sutures-no signs of infection ENT: Moist mucous membranes, No facial asymmetry, tympanic membranes clear bilaterally Neck: Trachea midline, No JVD full range of motion, nontender, CV: RRR, no murmurs, no peripheral edema Resp: Lungs CTA BL, no w/r/c GI: Abd soft, non-distended, non-tender, no r/r/g Musc: Full ROM, no deformity, strength +5/5 in all extremities, no pronator drift, no ataxia Skin: Warm, dry, intact Neuro: Fatigued, oriented, grossly intact, sensation intact, no focal deficits [facility] Medical History Accelerated idioventricular rhythm Implantable loop recorder present (~08/03/22) Stage 3b chronic kidney disease (CKD) TIA (transient ischemic attack) Vasovagal syncopes Pure hypercholesterolemia Altered mental status Syncope Hyperlipidemia Essential hypertension Home Medications ?Medication ?Instructions ?Recorded ?Last Taken ?Type aspirin 81 mg tablet,delayed 81 mg PO DAILY 03/14/18 08/04/22 History release (Adult Low Dose Aspirin) zolpidem 5 mg tablet 5 mg PO QHS PRN Sleep 03/14/18 07/04/22 History fluticasone propionate 50 1 spray intranasal DAILY 01/26/23 Unknown History mcg/actuation nasal spray,suspension (Allergy Relief (fluticasone)) mirtazapine 15 mg tablet 15 mg PO DAILY 01/26/23 Unknown History pantoprazole 40 mg tablet,delayed 40 mg PO DAILY 01/26/23 Unknown History release cholecalciferol (vitamin D3) 125 125 mcg PO QDAY 02/04/25 Unknown History mcg (5,000 unit) capsule levothyroxine 50 mcg capsule 50 mcg PO QDAY 02/04/25 Unknown History magnesium 250 mg tablet 500 mg PO QDAY 02/04/25 Unknown History suvorexant 10 mg tablet (Belsomra) 10 mg PO QHS 02/04/25 Unknown History carvedilol 25 mg tablet 25 mg PO BID #180 tabs 06/05/25 Unknown Rx lisinopril 10 mg tablet 10 mg PO BID Dose has been 06/11/25 Unknown Rx increased #180 tabs ascorbic acid (vitamin C) 500 mg 500 mg PO BID 06/24/25 Unknown History tablet doxepin 10 mg capsule 10 mg PO QHS 06/24/25 Unknown History erythromycin 5 mg/gram (0.5 %) eye 1 applic RIGHT EYE UD 06/24/25 Unknown History ointment levothyroxine 50 mcg tablet 50 mcg PO DAILY 06/24/25 Unknown History methenamine hippurate 1 gram tablet 1 g PO BID 06/24/25 Unknown History Allergy/AdvReac Type Severity Reaction Status Date / Time amlodipine Allergy Severe Mouth Sores Verified 06/24/25 14:34 spironolactone Allergy Severe short of Verified 06/24/25 14:34 breath, throat closes off diltiazem (From Cardizem) Allergy Intermediate Mouth Verified 06/24/25 14:34 Ulcers atorvastatin AdvReac Intermediate Nausea Verified 06/24/25 14:34 clonidine AdvReac Intermediate Feels Verified 06/24/25 14:34 faint and tired hydralazine AdvReac Intermediate Chest Verified 06/24/25 14:34 discomfort after taking it losartan (From Cozaar) AdvReac Intermediate cough Verified 06/24/25 14:34 nitrofurantoin (From AdvReac Intermediate Nausea/Vomi Verified 06/24/25 14:34 Macrobid) ting paroxetine (From Paxil) AdvReac Intermediate Vomiting Verified 06/24/25 14:34 chlorthalidone AdvReac Mild Nausea Verified 06/24/25 14:34 erythromycin base AdvReac Unknown Unknown Verified 06/24/25 14:34 Family History Mother No problems noted. Father No problems noted. Sister Diabetes Sister Hyperlipidemia Daughter Hypertension Son Hypertension Surgical History History of tonsillectomy Social History Smoking Status: Never smoker alcohol intake: never substance use type: does not use caffeine: Yes (1) Type: carbonated beverages and coffee what type of physical activity do you participate in: none EXAM Physical Exam Const Vital Signs: 06/24/25 14:30 06/24/25 14:40 06/24/25 14:58 Temperature 97.7 F L Temperature Source Oral Pulse Rate 65 Respiratory Rate 20 H Respiratory Effort Normal Non-Labored Respiratory Pattern Normal Blood Pressure 107/54 L Blood Pressure Mean 71 Pulse Ox 93 88 Oxygen Delivery Method Room Air Room Air Oxygen Flow Rate (L/min) 06/24/25 14:58 06/24/25 15:00 06/24/25 15:30 Temperature Temperature Source Pulse Rate 57 L 67 Respiratory Rate 14 15 Respiratory Effort Respiratory Pattern Blood Pressure 111/58 L Blood Pressure Mean 73 Pulse Ox 93 94 Oxygen Delivery Method Nasal Cannula Oxygen Flow Rate (L/min) 3 06/24/25 16:00 06/24/25 16:30 06/24/25 17:00 Temperature Temperature Source Pulse Rate 65 68 Respiratory Rate 17 17 Respiratory Effort Respiratory Pattern Blood Pressure 141/66 H 150/71 H 150/68 H Blood Pressure Mean 86 95 92 Pulse Ox 98 97 Oxygen Delivery Method Oxygen Flow Rate (L/min) 06/24/25 17:30 06/24/25 18:00 Temperature 97.7 F L Temperature Source Pulse Rate 78 78 Respiratory Rate 17 19 H Respiratory Effort Respiratory Pattern Blood Pressure 155/76 H 147/78 H Blood Pressure Mean 95 101 Pulse Ox 96 97 Oxygen Delivery Method Oxygen Flow Rate (L/min) MDM MDM MDM Narrative Medical decision making narrative: 84-year-old female with past medical history of HTN, HLD, CKD presents for evaluation of minimal responsive episode. History taken by patient, daughter, eye doctor office. Patient had a Entropion repair right lower eyelid today by Dr. Crump. She received 1.5 mg of Versed IV and 75 mcg of fentanyl. At the time of discharge patient was responsive. She then had a minimal responsive episode in the car with her daughter. By the time patient arrived here in the emergency department she is fatigued but responsive. She denies any complaints other than fatigue and nausea. Physical exam is unremarkable except for constricted pupils and fatigue. Differential diagnosis includes but is not limited to drug side effect from fentanyl and Versed, dehydration, electrolyte abnormality, UTI, suspect less likely ACS or intracranial abnormality. NS bolus, Zofran, Narcan ordered. Laboratory workup ordered including CT of the brain. After receiving Narcan, patient's is no longer fatigued. She is much more alert. This help support my suspicion that patient's minimally responsive episode was secondary to the Versed and fentanyl. CBC unremarkable without leukocytosis or anemia. CMP shows baseline CKD with creatinine of 1.55. No transaminitis. Troponin unremarkable x 2. Unable to obtain urine as patient states she does not have to pee. I have low suspicion for UTI as patient is at her neurological baseline and her fatigue improved with Narcan. She is not endorsing any urinary type symptoms. At this point in time, patient was ambulated in the emergency department without difficulty. Her minimal responsive episode was likely a side effect from the medication she received for surgery. Patient stable to discharge home. Return precautions explained. Patient and family confirmed understand the plan. Patient stable to discharge home EKG: Interpreted by me/EM physician: EKG shows normal sinus rhythm with known left bundle branch block. Heart rate 62. This was paired to previous EKG in December 2022 and similar. Diagnostic: Interpreted by me/EM physician: Chest x-ray without pneumonia, effusion, pneumothorax, cardiomegaly. Radiology in agreement. Impression: 1. Adverse drug reaction 2. Minimal responsive episode secondary to Versed and fentanyl 3. CKD Lab Data Labs: Laboratory Results - last 24 hr 06/24/25 06/24/25 14:36 16:34 WBC 9.5 RBC 4.43 Hgb 13.1 Hct 39.9 MCV 90.1 MCH 29.6 MCHC 32.8 RDW Std Deviation 43.0 RDW Coeff of [place] 13.1 Plt Count 224 MPV 12.0 Immature Gran % (Auto) 0.400 Neut % (Auto) 57.3 Lymph % (Auto) 29.5 [place] % (Auto) 7.5 Eos % (Auto) 3.9 Baso % (Auto) 1.4 H Absolute Neuts (auto) 5.5 Absolute Lymphs (auto) 2.81 Nucleated RBC % 0 Sodium 143 Potassium 4.0 Chloride 109 H Carbon Dioxide 20.9 L Anion Gap 13 BUN 17 Creatinine 1.55 H Estim Creat Clear Calc 28.80 L Est GFR (MDRD) Non-Af 33 L BUN/Creatinine Ratio 11.0 Glucose 147 H Calcium 9.1 Total Bilirubin 0.51 AST 26 ALT 26 Alkaline Phosphatase 86 Troponin T High Sens 13 Troponin T Hi Sens 2 Hr 11 Total Protein 6.4 Albumin 4.0 Globulin 2.4 Albumin/Globulin Ratio 1.7 Radiography Diagnostic Testing: Clinical Impression(s) from Imaging Studies Brain CT 06/24/25 14:50 IMPRESSION: No acute intracranial abnormalities. Reading Location: [facility] Chest X-Ray 06/24/25 15:15 IMPRESSION: No acute abnormality is seen. Reading Location: [id number] Discharge Plan Triage Chief Complaint: Unresponsive ED Provider: Adelfo Cano Dx/Rx/DC Orders Clinical Impression: Adverse drug reaction Instructions: ED Drug Reaction, Other Prescriptions: No Action zolpidem 5 mg tablet 5 mg PO QHS PRN (Reason: Sleep) aspirin [Adult Low Dose Aspirin] 81 mg tablet,delayed release (DR/EC) 81 mg PO DAILY pantoprazole 40 mg tablet,delayed release (DR/EC) 40 mg PO DAILY mirtazapine 15 mg tablet 15 mg PO DAILY fluticasone propionate [Allergy Relief (fluticasone)] 50 mcg/actuation spray,suspension 1 spray intranasal DAILY Rx Instructions: administer into each nostril magnesium 250 mg tablet 500 mg PO QDAY cholecalciferol (vitamin D3) 125 mcg (5,000 unit) capsule 125 mcg PO QDAY levothyroxine 50 mcg capsule 50 mcg PO QDAY Belsomra 10 mg tablet 10 mg PO QHS doxepin 10 mg capsule 10 mg PO QHS ascorbic acid (vitamin C) 500 mg tablet 500 mg PO BID levothyroxine 50 mcg tablet 50 mcg PO DAILY erythromycin 5 mg/gram (0.5 %) ointment 1 applic RIGHT EYE UD methenamine hippurate 1 gram tablet 1 g PO BID carvedilol 25 mg tablet 25 mg PO BID Qty: 180 4RF lisinopril 10 mg tablet 10 mg PO BID Qty: 180 3RF Primary Care Provider: Jeffrey Fortune NP Referrals: Jeffrey Fortune NP, [employer] [facility] [Primary Care Provider] - 3-5 Days Activity Restrictions/Additional Instructions: Your symptoms was likely due to the surgery medications. Return back to the ED if symptoms change or recur. Follow-up with your primary care physician. Print Language: Vietnamese Disposition Disposition: Home, Self Care Discharge Date/Time: 06/24/25 18:13
[2025-06-24 15:29] LABS: AST(SGOT) 26 U/L (<=31); Alanine Aminotransfer ALT/SGPT 26 U/L (<=34); Albumin, Serum 4.0 g/dL (3.4-4.8); Alkaline Phosphatase 86 U/L (35-104); Anion Gap 13 (5-15); BUN 17 mg/dL (4-19); BUN/Creat Ratio 11.0 RATIO (10-20); Calcium,Total 9.1 mg/dL (7.6-11.0); Carbon Dioxide 20.9 mmol/L (21.0-32.0); Chloride 109 mmol/L (98-108); Estimated Creatinine Clearance 28.80 ml/min (50-250); Globulin 2.4 g/dL (2.2-4.2); Glucose 147 mg/dL (70-99); Potassium 4.0 mmol/L (3.3-5.1)
[2025-06-24 15:52] LABS: Troponin T High Sensitivity 13 ng/L (<=14)
[2025-06-24 17:02] LABS: Troponin T High Sens 2 HR 11 ng/L (<=14)
== END 2025-06-24 18:13 | disposition home or self-care (01) ==
PROVIDERS: Emergency Provider Surgery; Visit Provider Surgery
DX: R11.2 Nausea with vomiting, unspecified (principal); N18.32 Chronic kidney disease, stage 3b; E78.00 Pure hypercholesterolemia, unspecified; I12.9 Hypertensive chronic kidney disease with stage 1 through stage 4 chronic kidney disease, or unspecified chronic kidney disease; T40.415A Adverse effect of fentanyl or fentanyl analogs, initial encounter; Z79.899 Other long term (current) drug therapy; Z86.73 Personal history of transient ischemic attack (TIA), and cerebral infarction without residual deficits
CPT/HCPCS: 70450; 71046; 80053; 84484; 85025; 93005; 96361; 96374; 96375; 99284; A4216; J2405